=== PATIENT | female | born 1960 | race Caucasian/White ===

== ENCOUNTER 2016-07-06 18:55 | Inpatient (IN) | payer OTHER ==
[~2016-07-06] VITALS: Ht 157.5 cm; Wt 84.9 kg
[2016-07-06 21:00] VITALS: PULSE 83; Ht 157.5 cm; Wt 84.9 kg
[2016-07-06 21:20] VITALS: BP 165/92; RESP 19
[2016-07-06] MEDS ORDERED: LISI20TA11 PO (21:53)
[2016-07-06] MEDS ORDERED: LEVEM SC (21:55)
[2016-07-06] MEDS ORDERED: MTF1000T PO (21:55)
[2016-07-06] MEDS ORDERED: SYNTROID (21:57)
--- NOTE | 2016-07-06 22:05 | HP ---
Date/Time of Note Date/Time of Note DATE: 07/06/16 TIME: 22:04 Assessment/Plan VTE Prophylaxis VTE Prophylaxis Intervention: other (Compression Stockings) Lines/Catheters IV Catheter Type (from Nrsg): Saline Lock Assessment/Plan Assessment/Plan 1) Pneumonia - Continue Rocephin and Azithromycin IV daily - CBC in AM 2) Asthma - Start DuoNebs QID and Albuterol Nebs Q 2 hours prn. 3) Diabetes Type 2 - Carb Counting Diet - FSBS AC and HS - Resume Lisinopril and Metformin. - BMP in AM HPI/ROS Admit Date/Time Admit Date/Time Jul 06, 2016 at 20:28 Hx of Present Illness Direct Admit from [facility] This is a 55 year old female who was transferred from [facility] for insurance reasons. There, she was diagnosed with Pneumonia after having a cough for over 3 weeks, getting worse with increasing SOB over the past week. Prior to this episode, she had the Flu, but did get mostly better from it, except for the cough. No recent fever, but does not feel well. Tires easily. States she got half way across the parking lot and had to stop and catch her breath "I almost passed out". No nausea, vomiting or body aches, but some chest pain, worse with coughing. She has a history of Asthma, but no history of bronchitis pneumonia, seasonal allergies or tobacco use On arrival to the ER, her O2 was 88%. EKG showed poor R-wave progression, isolated 1mm JULES in V2, later T-wave flattening.She was treated with Rocephin and Azithromycin, diuresed and given ASA 325 mg po. prior to discharge from [facility]. ROS Constitutional: fatigue, No nausea Eyes: No pain, No visual change ENT: No discharge, No sore throat Respiratory: pain, shortness of breath, No pleuritic pain, No wheezing (has an inhaler but has not needed it.) Cardiovascular: No chest pain, No palpitations Gastrointestinal: No nausea, No vomiting Genitourinary: No discharge, No dysuria, No hematuria Musculoskeletal: No back pain, No neck pain Skin: no complaints Neurologic: headache (mild. worse with cough) Psychological: no complaints Immunologic: pruritis, rhinitis PMH/Family/Social Past Medical History Medical History: diabetes, high cholesterol, hypertension, hypothyroid, other ( asthma; No bronchitis or Seasonal Allergies.Arthritis. Fibromyalgia) Past Surgical History Hysterectomy and BSO, never put on hormones. Family History Significant Family History: no pertinent family hx Social History Alcohol Use: none Smoking Status: Never smoker Drug Use: none Exam/Review of Systems Vital Signs Vitals Vital Signs Date Time Temp Pulse Resp B/P Pulse Ox O2 Delivery O2 Flow Rate FiO2 07/06/16 21:20 98.9 83 19 165/92 97 Exam Constitutional: alert, oriented, well developed Psych: no complaints Head: atraumatic, normocephalic Eyes: EOMI, nl conjunctiva, nl sclera ENMT: nl lips & teeth, nl nasal mucosa & septum Neck: non-tender, supple Respiratory: normal air movement, other (Coarse Rhonchi, mid and lower lung rendon), wheezing (Scattered, musical wheezes in anterior and lower lung rendon. ) Cardiovascular: nl pulses, regular rate and rhythm Gastrointestinal: nl liver, spleen, non-tender, soft, No rebound or guarding Musculoskeletal: nl extremities to inspection Extremities: normal pulses Neurological: HAND II TUBE BENDER II-XII intact (grossly), nl mental status, nl strength, No focal weakness Skin: nl turgor, No rash or lesions Lymph: nl lymph nodes (cervical) Additional Comments LABS done a [place] [facility]: WBC = 5.6 Hgb = 12.9 Hct = 39.5 PLT = 221 Indices very near normal limits Na = 136 K+ = 3.2 Cl = 96 BUN = 13 Cr = 0.63 Glu = 273 Ca+ = 8.3 Lactate = 1.3 BNP = 168 Trop-I = 0.062 Medications Medications Levothyroxine, daily Lisinopril, Daily Metformin, Daily Prednisone, Daily Procedures Procedures RADIOLOGY: 2VCXR 1) Bilateral perihilar pulmonary consolidations of pneumonia and/or edema, moderated left and large right as compared to 04/06/2012 2) No abnormal calcifications, pleural effusions or cardiomegaly; midline trachea and normal course thoracic aorta. AARON BAUTISTA MD Jul 06, 2016 22:04
[2016-07-06] MEDS ORDERED: NITROGLYCERIN (SL) 0.4 MG TAB SL PRN (22:30)
[2016-07-06] MEDS ORDERED: NACL 0.9% 3 ML SYG IV SCH (22:30)
[2016-07-06] MEDS ORDERED: DEXTROSE 50% 50 ML SYRINGE IV PRN ×2 (23:00)
[2016-07-06] MEDS ORDERED: GLUCOSE GEL 15 GRAM TUBE BUCCAL PRN (23:00)
[2016-07-06] MEDS ORDERED: GLUCOSE GEL 15 GRAM TUBE PO PRN ×2 (23:00)
[2016-07-06] MEDS ORDERED: GLUCAGON 1 MG INJ IM PRN (23:00)
[2016-07-06] MEDS: ALBUTEROL/IPRATROPIUM (NEB) 3 ML AMP HHN PRN (23:08)
[2016-07-06] MEDS ORDERED: hydrALAzine 20 MG INJ IV PRN (23:30)
[2016-07-07] VITALS (12 sets, daily range): BP systolic 135–165; BP diastolic 62–77; PULSE 76–93; RESP 18–20
[2016-07-07] MEDS: PROMETHAZINE/CODEINE 5ML CUP PO PRN ×3 (00:03→20:22)
[2016-07-07] MEDS ORDERED: ALBUTEROL 0.083% (NEB) 2.5 MG/3 ML AMP HHN PRN (01:30)
[2016-07-07] MEDS: ACCUCHECK XX SCH (02:00)
[2016-07-07] MEDS: ACETAMINOPHEN 325 MG TAB PO PRN (05:38)
[2016-07-07] MEDS: ALBUTEROL/IPRATROPIUM (NEB) 3 ML AMP HHN PRN ×2 (05:47→08:19)
[2016-07-07 07:09] LABS: ADD SCAN DIFF NO
[2016-07-07 07:14] LABS: BASOPHILS % 0.3 % (0.0-2.0); HEMATOCRIT 34.9 % (37.0-47.0); HEMOGLOBIN 11.5 g/dl (12.0-16.0); LYMPHOCYTES # 2.9 10^3/ul (0.8-2.9); LYMPHOCYTES % 49.7 % (15.0-51.0); MEAN CORPUSCULAR HEMOGLOBIN 28.1 pg (29.0-33.0); MEAN CORPUSCULAR VOLUME 85.3 fl (82.0-101.0); MEAN PLATELET VOLUME 10.2 fl (7.4-10.4); MONOCYTE # 0.4 10^3/ul (0.3-0.9); MONOCYTES % 6.5 % (0.0-11.0); NEUTROPHIL # 2.6 10^3/ul (1.6-7.5); NEUTROPHILS % 43.3 % (39.0-77.0); PLATELET COUNT 223 10^3/UL (140-415); RED BLOOD COUNT 4.09 10^6/ul (4.20-5.40); RED CELL DISTRIBUTION WIDTH 14.1 % (11.5-14.5); WHITE BLOOD COUNT 5.9 10^3/ul (4.8-10.8)
[2016-07-07 07:32] LABS: ALBUMIN 2.3 g/dl (3.3-4.9)
[2016-07-07 07:35] LABS: ALBUMIN/GLOBULIN RATIO 0.71; BILIRUBIN,INDIRECT 0.5 mg/dl (0-1.1); BILIRUBIN,TOTAL 0.5 mg/dl (0.2-1.3); CREATININE 0.6 mg/dl (0.44-1.00); TOTAL PROTEIN 5.5 g/dl (6.1-8.1)
[2016-07-07 07:36] LABS: CALCIUM 7.8 mg/dl (8.4-10.2)
[2016-07-07] MEDS: FAMOTIDINE 20 MG TAB PO SCH ×2 (08:12→20:22)
[2016-07-07] MEDS: LISINOPRIL 20 MG TAB PO SCH (08:13)
[2016-07-07] MEDS: INSULIN ASPART [NOVOLOG] 3 ML PEN SC SCH ×4 (08:16→20:26)
[2016-07-07] MEDS ORDERED: POTASSIUM CHLORIDE 20 MEQ in SOD CHLORIDE 0.9% 100 ML IVPB ONE (13:00)
[2016-07-07] MEDS: CEFTRIAXONE 1 GM/50 ML (PMX) 50 ML IVPB SCH (13:00)
[2016-07-07] MEDS: AZITHROMYCIN 500MG/NS (PMX) 250 ML IVPB SCH (15:06)
--- NOTE | 2016-07-07 16:24 | PN ---
Date/Time of Note Date/Time of Note DATE: 07/07/16 TIME: 16:21 Assessment/Plan VTE Prophylaxis VTE Prophylaxis Intervention: SCD's Lines/Catheters IV [facility]from [facility] Saline Lock Urinary Cath still in place: No Assessment/Plan Chief Complaint/Hosp Course Assessment/Plan 1) Pneumonia - Continue Rocephin and Azithromycin IV daily - CBC in AM 2) Asthma - Start DuoNebs QID and Albuterol Nebs Q 2 hours prn. 3) Diabetes Type 2 - Carb Counting Diet - FSBS AC and HS - Resume metformin and insulin/Lantus - BMP in AM 4. Hypothyroidism, follow-up thyroid panel in a.m. continue Synthroid 5. NST IN, troponin leak, is likely secondary to frequent cough, cardiology has been consulted, continue aspirin, obtain a 2D echocardiogram and follow cardiology recommendations We will continue monitor patient closely for recommendation management treatment as clinical course Problems: Subjective 24 Hr Interval Summary Free Text/Dictation Patient continues to complain of having cough and congestion Denies of any chest pain Tolerating oral intake Exam/Review of Systems Vital Signs Vitals Vital Signs Date Time Temp Pulse Resp B/P Pulse Ox O2 Delivery O2 Flow Rate FiO2 07/07/16 16:05 78 07/07/16 16:01 98.8 20 161/73 98 07/07/16 08:19 21 07/07/16 08:15 Nasal Cannula 2.0 Intake and Output 07/06/16 07/06/16 07/07/16 15:00 23:00 07:00 Intake Total 550 ml Balance 550 ml Exam General: The patient is well-developed, Not in acute distress. HEENT: Atraumatic, normocephalic. The pupils are equal and round . Neck: Supple with full range of motion. Chest: Normal expansion of the thorax during inspiration Lungs: Clear to auscultation bilaterally Heart: Normal S1-S2, Regular rhythm and rate. Abdomen: Soft , nontender, nondistended , bowel sounds are present. Extremities: Normal to inspection, no edema no cyanosis Neurologic: Normal mental status,The patient is awake, alert and oriented . Results Result Diagram: 07/07/16 0640 07/07/16 0644 Results 24 hrs Laboratory Tests Test 07/07/16 06:40 07/07/16 06:44 07/07/16 07:49 07/07/16 12:23 Basophils # 0.0 Basophils % 0.3 Eosinophils # 0.0 Eosinophils % 0.0 Hematocrit 34.9 L Hemoglobin 11.5 L Hemoglobin A1c 9.3 H Lymphocytes # 2.9 Lymphocytes % 49.7 Magnesium Level 1.6 L Mean Corpuscular Hemoglobin 28.1 L Mean Corpuscular Hemoglobin Concent 33.0 Mean Corpuscular Volume 85.3 Mean Platelet Volume 10.2 Monocytes # 0.4 Monocytes % 6.5 Neutrophils # 2.6 Neutrophils % 43.3 Nucleated Red Blood Cells # 0.0 Nucleated Red Blood Cells % 0.0 Platelet Count 223 Red Blood Count 4.09 L Red Cell Distribution Width 14.1 White Blood Count 5.9 Alanine Aminotransferase (ALT/SGPT) 44 Albumin 2.3 L Albumin/Globulin Ratio 0.71 Alkaline Phosphatase 215 H Anion Gap 11 Aspartate Amino Transf (AST/SGOT) 42 Blood Urea Nitrogen 12 Calcium Level 7.8 L Carbon Dioxide Level 31 Chloride Level 99 Creatinine 0.60 Direct Bilirubin 0.00 Globulin 3.20 Glucose Level 218 Indirect Bilirubin 0.5 Potassium Level 3.0 L Sodium Level 138 Total Bilirubin 0.5 Total Protein 5.5 L Bedside Glucose 198 235 H Medications Medications Current Medications Nitroglycerin (Nitroglycerin (Sl Tab) 0.4 Mg) 1 tab Q5M PRN SL CHEST PAIN; Start 07/06/16 at 22:30 Acetaminophen (Tylenol Tab) 650 mg Q6H PRN PO PAIN LEVEL 1-3 OR FEVER Last administered on 07/07/16 05:38; Admin Dose 650 MG; Start 07/06/16 at 22:30 Famotidine (Pepcid) 20 mg Q12 PO Last administered on 07/07/16 08:12; Admin Dose 20 MG; Start 07/07/16 at 09:00 Diagnostic Test (Pha) (Accucheck) 1 ea 02 XX ; Start 07/07/16 at 02:00 Miscellaneous Information 1 ea NOTE XX ; Start 07/06/16 at 23:00 Glucose (Glutose) 15 gm Q15M PRN PO DECREASED GLUCOSE; Start 07/06/16 at 23:00 Glucose (Glutose) 22.5 gm Q15M PRN PO DECREASED GLUCOSE; Start 07/06/16 at 23:00 Dextrose (D50w Syringe) 25 ml Q15M PRN IV DECREASED GLUCOSE; Start 07/06/16 at 23:00 Dextrose (D50w Syringe) 50 ml Q15M PRN IV DECREASED GLUCOSE; Start 07/06/16 at 23:00 Glucagon (Glucagen) 1 mg Q15M PRN IM DECREASED GLUCOSE; Start 07/06/16 at 23:00 Glucose (Glutose) 15 gm Q15M PRN BUCCAL DECREASED GLUCOSE; Start 07/06/16 at 23: 00 Promethazine HCl/ Codeine (Phenergan/ Codeine) 10 ml Q4H PRN PO COUGH Last administered on 07/07/16 06:26; Admin Dose 10 ML; Start 07/06/16 at 23:30 Lisinopril (Zestril) 20 mg DAILY PO Last administered on 07/07/16 08:13; Admin Dose 20 MG; Start 07/07/16 at 09:00 Hydralazine HCl 10 mg 10 mg Q4H PRN IV ELEVATED BLOOD PRESSURE; Start 07/06/16 at 23:30 Azithromycin 250 ml @ 250 mls/hr Q24H IVPB Last administered on 07/07/16 15:06 ; Admin Dose 250 MLS/HR; Start 07/07/16 at 13:30 Ceftriaxone Sodium (Rocephin) 50 ml @ 100 mls/hr Q24H IVPB ; Start 07/07/16 at 13:00 KEILA DORSEY MD Jul 07, 2016 16:24
[2016-07-07 16:51] LABS: CK-MB 0.93 ng/ml (0.0-2.4)
[2016-07-07 16:54] LABS: TROPONIN-I 0.063 ng/ml (0.00-0.12)
[2016-07-07] MEDS: ASPIRIN (EC) 81 MG TAB PO SCH (17:38)
[2016-07-07] MEDS ORDERED: MAGNESIUM SULFATE 3 GM in SOD CHLORIDE 0.9% 100 ML IVPB ONE (18:00)
--- NOTE | 2016-07-07 18:19 | CONS ---
Date/Time of Note Date/Time of Note DATE: 07/07/16 TIME: 18:12 Assessment/Plan Assessment/Plan Chief Complaint/Hosp Course SOB: ?multifactorial but CHF seems to be the main component based on my exam Acute ?diastolic heart failure: EF unknown. By exam she is decompensated. Mild troponin elevation: Very trivial at 0.06 x 2. ?PNA DM HTN -lasix 20mg IV x1 and reassess -echo -CXR -ASA, statin -lisinopril -antibiotics per primary team Problems: Consultation Date/Type/Reason Admit Date/Time Jul 06, 2016 at 20:28 Date of Consultation: Jul 07, 2016 Type of Consultation: Cardiology Reason for Consultation elevated troponin Referring Provider: KEILA DORSEY MD Hx of Present Illness 55 yo F with a h/o DM, HTN, who presented to [facility] with SOB and was found to have hypoxia (88% on RA). She was treated for PNA and CHF and transferred to [facility] for further care. She notes that over the past 1-2 weeks she has been having worsening SOB and PRASAD as well as orthopnea, edema. She also thinks she had a fever at home and a cough. She denies CP. Currently feels better but still SOB when ambulating around room. per HPI Eyes: No pain, No visual change ENT: No discharge, No sore throat Respiratory: pain, shortness of breath, No pleuritic pain, No wheezing (has an inhaler but has not needed it.) Cardiovascular: No chest pain, No palpitations Gastrointestinal: No nausea, No vomiting Genitourinary: No discharge, No dysuria, No hematuria Musculoskeletal: No back pain, No neck pain Skin: no complaints Neurologic: headache (mild. worse with cough) Psychological: no complaints Immunologic: pruritis, rhinitis Past Medical History Medical History: diabetes, high cholesterol, hypertension, hypothyroid, other ( asthma; No bronchitis or Seasonal Allergies.Arthritis. Fibromyalgia) Social History Alcohol Use: none Smoking Status: Never smoker Drug Use: none Exam/Review of Systems Vital Signs Vitals Vital Signs Date Time Temp Pulse Resp B/P Pulse Ox O2 Delivery O2 Flow Rate FiO2 07/07/16 16:05 78 07/07/16 16:01 98.8 20 161/73 98 07/07/16 08:19 21 07/07/16 08:15 Nasal Cannula 2.0 Intake and Output 3/6/17 3/6/17 3/7/17 15:00 23:00 07:00 Intake Total 550 ml Balance 550 ml Exam Constitutional: alert, oriented Head: atraumatic, normocephalic Neck: jvd (8cm) Respiratory: crackles/rales, diminished breath sounds, No clear to auscultation Cardiovascular: edema (1+), regular rate and rhythm, No systolic murmur Gastrointestinal: non-tender, soft Extremities: normal pulses Neurological: nl mental status, nl speech Results Result Diagram: 07/07/16 0640 07/07/16 0644 Results 24 hrs Laboratory Tests Test 07/07/16 06:40 07/07/16 06:44 07/07/16 07:49 07/07/16 12:23 Basophils # 0.0 Basophils % 0.3 Eosinophils # 0.0 Eosinophils % 0.0 Hematocrit 34.9 L Hemoglobin 11.5 L Hemoglobin A1c 9.3 H Lymphocytes # 2.9 Lymphocytes % 49.7 Magnesium Level 1.6 L Mean Corpuscular Hemoglobin 28.1 L Mean Corpuscular Hemoglobin Concent 33.0 Mean Corpuscular Volume 85.3 Mean Platelet Volume 10.2 Monocytes # 0.4 Monocytes % 6.5 Neutrophils # 2.6 Neutrophils % 43.3 Nucleated Red Blood Cells # 0.0 Nucleated Red Blood Cells % 0.0 Platelet Count 223 Red Blood Count 4.09 L Red Cell Distribution Width 14.1 White Blood Count 5.9 Alanine Aminotransferase (ALT/SGPT) 44 Albumin 2.3 L Albumin/Globulin Ratio 0.71 Alkaline Phosphatase 215 H Anion Gap 11 Aspartate Amino Transf (AST/SGOT) 42 Blood Urea Nitrogen 12 Calcium Level 7.8 L Carbon Dioxide Level 31 Chloride Level 99 Creatinine 0.60 Direct Bilirubin 0.00 Globulin 3.20 Glucose Level 218 Indirect Bilirubin 0.5 Potassium Level 3.0 L Sodium Level 138 Total Bilirubin 0.5 Total Protein 5.5 L Bedside Glucose 198 235 H Test 07/07/16 16:00 07/07/16 17:37 Creatine Kinase 56 Creatine Kinase Index 1.7 Creatinine Kinase MB (Mass) 0.93 Troponin I 0.063 Bedside Glucose 214 Medications Medications Current Medications Nitroglycerin (Nitroglycerin (Sl Tab) 0.4 Mg) 1 tab Q5M PRN SL CHEST PAIN; Start 07/06/16 at 22:30 Acetaminophen (Tylenol Tab) 650 mg Q6H PRN PO PAIN LEVEL 1-3 OR FEVER Last administered on 07/07/16 05:38; Admin Dose 650 MG; Start 07/06/16 at 22:30 Famotidine (Pepcid) 20 mg Q12 PO Last administered on 07/07/16 08:12; Admin Dose 20 MG; Start 07/07/16 at 09:00 Diagnostic Test (Pha) (Accucheck) 1 ea 02 XX ; Start 07/07/16 at 02:00 Miscellaneous Information 1 ea NOTE XX ; Start 07/06/16 at 23:00 Glucose (Glutose) 15 gm Q15M PRN PO DECREASED GLUCOSE; Start 07/06/16 at 23:00 Glucose (Glutose) 22.5 gm Q15M PRN PO DECREASED GLUCOSE; Start 07/06/16 at 23:00 Dextrose (D50w Syringe) 25 ml Q15M PRN IV DECREASED GLUCOSE; Start 07/06/16 at 23:00 Dextrose (D50w Syringe) 50 ml Q15M PRN IV DECREASED GLUCOSE; Start 07/06/16 at 23:00 Glucagon (Glucagen) 1 mg Q15M PRN IM DECREASED GLUCOSE; Start 07/06/16 at 23:00 Glucose (Glutose) 15 gm Q15M PRN BUCCAL DECREASED GLUCOSE; Start 07/06/16 at 23: 00 Promethazine HCl/ Codeine (Phenergan/ Codeine) 10 ml Q4H PRN PO COUGH Last administered on 07/07/16 06:26; Admin Dose 10 ML; Start 07/06/16 at 23:30 Lisinopril (Zestril) 20 mg DAILY PO Last administered on 07/07/16 08:13; Admin Dose 20 MG; Start 07/07/16 at 09:00 Hydralazine HCl 10 mg 10 mg Q4H PRN IV ELEVATED BLOOD PRESSURE; Start 07/06/16 at 23:30 Azithromycin 250 ml @ 250 mls/hr Q24H IVPB Last administered on 07/07/16 15:06 ; Admin Dose 250 MLS/HR; Start 07/07/16 at 13:30 Ceftriaxone Sodium 50 ml @ 100 mls/hr Q24H IVPB ; Start 07/07/16 at 13:00 Magnesium Sulfate/ Sodium Chloride (Magnesium Sulfate/NS) 106 ml @ 35.333 mls/ hr ONCE ONCE IVPB ; Start 07/07/16 at 18:00; Stop 07/07/16 at 20:59 Insulin Glargine (Lantus) 10 unit DAILY@20 SC ; Start 07/07/16 at 20:00 Levothyroxine Sodium (Synthroid) 50 mcg DAILY@06 PO ; Start 07/08/16 at 06:00 Aspirin (Halfprin) 81 mg DAILY PO Last administered on 07/07/16t 17:38; Admin Dose 81 MG; Start 07/07/16 at 16:30 Metoprolol Tartrate (Lopressor) 12.5 mg BID PO ; Start 07/07/16 at 21:00 SEUN JONES Jul 07, 2016 18:19
[2016-07-07] MEDS ORDERED: GUAIFENESIN/DM 5ML CUP PO PRN (18:30)
[2016-07-07] MEDS ORDERED: FUROSEMIDE 20 MG INJ IV ONE (18:30)
[2016-07-07] MEDS ORDERED: INSULIN GLARGINE [LANtus] 3 ML PEN SC SCH (20:00)
[2016-07-07] MEDS: ALBUTEROL/IPRATROPIUM (NEB) 3 ML AMP HHN SCH (20:41)
[2016-07-07] MEDS ORDERED: METOPROLOL 25 MG TAB PO SCH (21:00)
[2016-07-07 22:18] LABS: CK-MB 0.84 ng/ml (0.0-2.4)
[2016-07-07 22:21] LABS: TROPONIN-I 0.056 ng/ml (0.00-0.12)
[2016-07-08] VITALS (13 sets, daily range): BP systolic 128–160; BP diastolic 62–94; PULSE 68–80; RESP 17–20
[2016-07-08] MEDS: ALBUTEROL/IPRATROPIUM (NEB) 3 ML AMP HHN SCH ×4 (01:41→21:02)
[2016-07-08] MEDS: ACCUCHECK XX SCH (02:23)
[2016-07-08 03:44] LABS: ADD SCAN DIFF NO
[2016-07-08 03:59] LABS: BASOPHILS % 0.2 % (0.0-2.0); EOSINOPHILS % 0.8 % (0.0-7.0); HEMOGLOBIN 11.2 g/dl (12.0-16.0); LYMPHOCYTES # 3.4 10^3/ul (0.8-2.9); MEAN CORPUSCULAR HGB CONC 31.1 g/dl (32.0-37.0); MEAN CORPUSCULAR VOLUME 86.7 fl (82.0-101.0); MEAN PLATELET VOLUME 10.3 fl (7.4-10.4); MONOCYTE # 0.4 10^3/ul (0.3-0.9); MONOCYTES % 8.1 % (0.0-11.0); NEUTROPHIL # 1.3 10^3/ul (1.6-7.5); NEUTROPHILS % 25.1 % (39.0-77.0); PLATELET COUNT 238 10^3/UL (140-415); RED BLOOD COUNT 4.15 10^6/ul (4.20-5.40); RED CELL DISTRIBUTION WIDTH 14.4 % (11.5-14.5); WHITE BLOOD COUNT 5.2 10^3/ul (4.8-10.8)
[2016-07-08 04:02] LABS: POTASSIUM 3.2 mmol/L (3.5-5.1)
[2016-07-08 04:04] LABS: CREATININE 0.61 mg/dl (0.44-1.00)
[2016-07-08 04:05] LABS: CALCIUM 7.9 mg/dl (8.4-10.2); CHOL/HDL RATIO 7.1 RATIO; MAGNESIUM 2.5 mg/dl (1.7-2.5)
[2016-07-08 04:09] LABS: LYMPHOCYTES % 65.6 % (15.0-51.0)
[2016-07-08 04:13] LABS: CK-MB 0.94 ng/ml (0.0-2.4)
[2016-07-08 04:16] LABS: TROPONIN-I 0.072 ng/ml (0.00-0.12)
[2016-07-08 04:46] LABS: PLATELET ESTIMATE PLT APPEAR ADEQUATE
[2016-07-08 04:47] LABS: ANISOCYTOSIS 1+; OVALOCYTES FEW
[2016-07-08] MEDS ORDERED: LEVOTHYROXINE 50 MCG TAB PO SCH (06:00)
[2016-07-08] MEDS ORDERED: POTASSIUM CHLORIDE (SR) 20 MEQ TAB PO ONE (06:30)
[2016-07-08] MEDS: PROMETHAZINE/CODEINE 5ML CUP PO PRN (06:41)
--- NOTE | 2016-07-08 08:43 | RADRPT ---
PROCEDURE: XR Chest. CLINICAL INDICATION: Pneumonia. TECHNIQUE: Chest x-ray, single view. COMPARISON: None. FINDINGS: The heart is enlarged. Mild aortic arch atherosclerotic calcification is present. Mild pulmonary v ascular congestion is observed. There is also patchy perihilar opacification. Skeletal structures and upper abdomen are unremarkable. IMPRESSION: Cardiomegaly and atherosclerosis with mild pulmonary vascular congestion and patchy perihilar opacif ication which may reflect mild edema. RPTAT: EE .Louisa Mehta MD, Date Time Electronically viewed and signed by .Louisa Mehta MD, on 07/08/2016 08:43 .T/
--- NOTE | 2016-07-08 10:24 | RADRPT ---
Echocardiogram Report Patient Name: DAMIAN CORONADO Gender: Female Date: 1960 Study Date: 08-Jul-2016 [facility]: [facility] Location: [id number] Ref. Physician: KEILA DORSEY Quality: Technically Difficult Study Procedures: Transthoracic echocardiogram with complete 2D, M-Mode, and doppler examination. Indications: NSTEMI. 2D/M Mode Doppler Measurement Value Normal Ranges Measurement Value Normal Ranges LVIDd 2D 4.8 3.5 - 5.6 cm AV Peak Kevin 1.5 m/sec LVIDs 2D 3.0 2.1 - 4.1 cm AV Peak PG 9.0 mmHg FS 2D 38.6 % LVOT Peak Kevin 1.2 m/sec LVPWd 2D 1.4 0.6 - 1.1 cm LVOT Peak PG 6.0 mmHg IVSd 2D 1.4 0.6 - 1.1 cm MV E Peak Kevin 1.1 m/sec IVS/LVPW 2D 1.0 MV A Peak Kevin 0.9 m/sec AoR Diam 2D 2.6 2.0 - 3.7 cm MV E/A 1.2 LA/Ao 2D 2 0 - 1 MV Decel Time 261 msec EDV 2D 112.0 cm3 MV E/A 1.2 ESV 2D 25.9 cm3 LA Dimen 2D 3.9 2.3 - 4.0 cm Findings Left Ventricle: Normal left ventricular systolic function. Normal left ventricular cavity size. Left ventricular wall thickness upper limits of normal. Moderate concentric left ventricular hypertrophy. Ejection fraction is visually estimated at 55 %. Tissue Doppler/Mitral Doppler indices are consistent with pseudonormalization with mildly elevated left atrial pressure (Stage II diastolic dysfunction). Right Ventricle: Normal right ventricular size. Left Atrium: There is mild enlargement of left atrium. Right Atrium: The right atrium is normal in size. Mitral Valve: Mild mitral leaflet calcification. Mild mitral annular calcification. Trace mitral regurgitation. Aortic Valve: Trileaflet aortic valve. Trace aortic valve regurgitation. Tricuspid Valve: Tricuspid valve not well visualized. Unable to obtain RVSP due to minimal presence of tricuspid regurgitation. There is trace tricuspid regurgitation. Pericardium: Small pericardial effusion. Aorta: Normal aortic root. IVC: Dilated inferior vena cava with poor inspiratory collapse consistent with elevated right atrial pressures. Conclusions 1.Normal left ventricular systolic function. Normal left ventricular cavity size. Left ventricular wall thickness upper limits of normal. Moderate concentric left ventricular hypertrophy. Ejection fraction is visually estimated at 55 %. Tissue Doppler/Mitral Doppler indices are consistent with pseudonormalization with mildly elevated left atrial pressure (Stage II diastolic dysfunction). 2.No significant valvular stenosis or regurgitation seen. 3.Unable to obtain RVSP due to minimal presence of tricuspid regurgitation. RA pressure is 8-15 mmHg (unclear respiratory effort). Electronically Signed By: Glenroy Holland 08-Jul-2016 10:23:45 -0800 Patient Name: DAMIAN CORONADO Study Date: 08-Jul-2016 [id number]
[2016-07-08] MEDS ORDERED: POTASSIUM CHLORIDE 20 MEQ POWDER FOR ORAL SOLN PO ONE (10:30)
--- NOTE | 2016-07-08 10:34 | CONS ---
Date/Time of Note Date/Time of Note DATE: 07/08/16 TIME: 10:31 Assessment/Plan Assessment/Plan Chief Complaint/Hosp Course SOB: ?multifactorial but CHF seems to be the main component based on my exam Acute ?diastolic heart failure: EF preserved, mod LVH, grade 2 diastolic dysfunction. By exam she is still decompensated. Mild troponin elevation: Very trivial at 0.06 x 2. ?PNA DM HTN -increase to lasix 40mg IV BID today, reassess tomorrow -will give another potassium 60mEq (already received 40 this am) as will be diuresed further -ASA, statin -lisinopril -antibiotics per primary team Problems: Consultation Date/Type/Reason Admit Date/Time Jul 06, 2016 at 20:28 Initial Consult Date 07/07/16 Type of Consultation: Cardiology Referring Provider: KEILA DORSEY MD 24 HR Interval Summary Free Text/Dictation No o/n events. Still SOB. CXR shows significant congestion. Echo with preserved EF but e/o diastolic dysfunction and heart failure. Exam/Review of Systems Vital Signs Vitals Vital Signs Date Time Temp Pulse Resp B/P Pulse Ox O2 Delivery O2 Flow Rate FiO2 07/08/16 08:19 71 07/08/16 08:03 98.1 17 139/71 96 07/08/16 08:00 21 07/07/16 19:00 Nasal Cannula 2.0 Intake and Output 07/07/16 07/07/16 07/08/16 15:00 23:00 07:00 Intake Total 960 ml 600 ml Balance 960 ml 600 ml Exam Constitutional: alert, oriented Psych: no complaints Head: normocephalic Neck: jvd Respiratory: crackles/rales, No clear to auscultation Cardiovascular: edema (1+), regular rate and rhythm, No systolic murmur Gastrointestinal: non-tender, soft Neurological: nl mental status, nl speech Results Result Diagram: 07/08/16 0335 07/08/16 0335 Results 24 hrs Laboratory Tests Test 07/07/16 12:23 07/07/16 16:00 07/07/16 17:37 07/07/16 20:17 Bedside Glucose 235 H 214 343 H Creatine Kinase 56 Creatine Kinase Index 1.7 Creatinine Kinase MB (Mass) 0.93 Troponin I 0.063 Test 07/07/16 21:47 07/08/16 02:22 07/08/16 03:35 07/08/16 08:22 Creatine Kinase 53 54 Creatine Kinase Index 1.6 1.7 Creatinine Kinase MB (Mass) 0.84 0.94 Troponin I 0.056 0.072 Bedside Glucose 179 178 Anion Gap 11 Anisocytosis 1+ Basophils # 0.0 Basophils % 0.2 Blood Urea Nitrogen 13 Calcium Level 7.9 L Carbon Dioxide Level 31 Chloride Level 100 Cholesterol Level 187 Cholesterol/HDL Ratio 7.1 Creatinine 0.61 Eosinophils # 0.0 Eosinophils % 0.8 Glucose Level 179 HDL Cholesterol 26 L Hematocrit 36.0 L Hemoglobin 11.2 L LDL Cholesterol, Calculated 125 Lymphocytes # 3.4 H Lymphocytes % 65.6 H Magnesium Level 2.5 Mean Corpuscular Hemoglobin 27.0 L Mean Corpuscular Hemoglobin Concent 31.1 L Mean Corpuscular Volume 86.7 Mean Platelet Volume 10.3 Monocytes # 0.4 Monocytes % 8.1 Neutrophils # 1.3 L Neutrophils % 25.1 L Nucleated Red Blood Cells # 0.0 Nucleated Red Blood Cells % 0.0 Ovalocytes FEW Platelet Count 238 Platelet Estimate PLT APPEAR ADEQUATE Potassium Level 3.2 L Red Blood Count 4.15 L Red Cell Distribution Width 14.4 Sodium Level 139 Thyroid Stimulating Hormone (TSH) 70.000 H Triglycerides Level 180 H White Blood Count 5.2 Medications Medications Current Medications Nitroglycerin (Nitroglycerin (Sl Tab) 0.4 Mg) 1 tab Q5M PRN SL CHEST PAIN; Start 07/06/16 at 22:30 Acetaminophen (Tylenol Tab) 650 mg Q6H PRN PO PAIN LEVEL 1-3 OR FEVER Last administered on 07/07/16 05:38; Admin Dose 650 MG; Start 07/06/16 at 22:30 Famotidine (Pepcid) 20 mg Q12 PO Last administered on 07/07/16 20:22; Admin Dose 20 MG; Start 07/07/16 at 09:00 Diagnostic Test (Pha) (Accucheck) 1 ea 02 XX Last administered on 07/08/16 02: 23; Admin Dose 1 EA; Start 07/07/16 at 02:00 Miscellaneous Information 1 ea NOTE XX ; Start 07/06/16 at 23:00 Glucose (Glutose) 15 gm Q15M PRN PO DECREASED GLUCOSE; Start 07/06/16 at 23:00 Glucose (Glutose) 22.5 gm Q15M PRN PO DECREASED GLUCOSE; Start 07/06/16 at 23:00 Dextrose (D50w Syringe) 25 ml Q15M PRN IV DECREASED GLUCOSE; Start 07/06/16 at 23:00 Dextrose (D50w Syringe) 50 ml Q15M PRN IV DECREASED GLUCOSE; Start 07/06/16 at 23:00 Glucagon (Glucagen) 1 mg Q15M PRN IM DECREASED GLUCOSE; Start 07/06/16 at 23:00 Glucose (Glutose) 15 gm Q15M PRN BUCCAL DECREASED GLUCOSE; Start 07/06/16 at 23: 00 Promethazine HCl/ Codeine (Phenergan/ Codeine) 10 ml Q4H PRN PO COUGH Last administered on 07/08/16 06:41; Admin Dose 10 ML; Start 07/06/16 at 23:30 Lisinopril (Zestril) 20 mg DAILY PO Last administered on 07/07/16 08:13; Admin Dose 20 MG; Start 07/07/16 at 09:00 Hydralazine HCl 10 mg 10 mg Q4H PRN IV ELEVATED BLOOD PRESSURE; Start 07/06/16 at 23:30 Azithromycin 250 ml @ 250 mls/hr Q24H IVPB Last administered on 07/07/16 15:06 ; Admin Dose 250 MLS/HR; Start 07/07/16 at 13:30 Ceftriaxone Sodium (Rocephin) 50 ml @ 100 mls/hr Q24H IVPB ; Start 07/07/16 at 13:00 Levothyroxine Sodium (Synthroid) 50 mcg DAILY@06 PO Last administered on 05:21; Admin Dose 50 MCG; Start 07/08/16 at 06:00 Aspirin (Halfprin) 81 mg DAILY PO Last administered on 07/07/16 17:38; Admin Dose 81 MG; Start 07/07/16 at 16:30 Insulin Glargine (Lantus) 10 unit BID SC ; Start 07/08/16 at 09:00 Metoprolol Tartrate (Lopressor) 25 mg BID PO ; Start 07/08/16 at 09:00 SEUN JONES Jul 08, 2016 10:33
[2016-07-08] MEDS: metFORMIN 500 MG TAB PO SCH (10:56)
[2016-07-08] MEDS: LISINOPRIL 20 MG TAB PO SCH (10:57)
[2016-07-08] MEDS: METOPROLOL 25 MG TAB PO SCH ×2 (10:57→20:40)
[2016-07-08] MEDS: FAMOTIDINE 20 MG TAB PO SCH ×2 (10:57→20:39)
[2016-07-08] MEDS: ASPIRIN (EC) 81 MG TAB PO SCH (10:57)
[2016-07-08] MEDS: INSULIN GLARGINE [LANtus] 3 ML PEN SC SCH ×2 (10:59→20:42)
[2016-07-08] MEDS: INSULIN ASPART [NOVOLOG] 3 ML PEN SC SCH ×4 (11:02→20:41)
[2016-07-08] MEDS: FUROSEMIDE 40 MG INJ IV SCH ×2 (11:08→18:47)
[2016-07-08] MEDS: CEFTRIAXONE 1 GM/50 ML (PMX) 50 ML IVPB SCH (12:43)
--- NOTE | 2016-07-08 12:59 | PN ---
Date/Time of Note Date/Time of Note DATE: 07/08/16 TIME: 12:57 Assessment/Plan VTE Prophylaxis VTE Prophylaxis Intervention: LMWH Lines/Catheters IV [facility]ter [facility]from [facility] Urinary Cath still in place: No Assessment/Plan Chief Complaint/Hosp Course Assessment/Plan 1) Pneumonia - Continue Rocephin and Azithromycin IV daily - CBC in AM 2) Asthma - Start DuoNebs QID and Albuterol Nebs Q 2 hours prn. 3) Diabetes Type 2 - Carb Counting Diet - FSBS AC and HS - Resume metformin and insulin/Lantus - BMP in AM 4. Hypothyroidism, TSH of 70, follow-up free T3 and free T4 continue Synthroid , precision lens centerer and edger has been consulted 5. NST LA, troponin leak, is likely secondary to frequent cough, cardiology has been consulted, continue aspirin, 2D echocardiogram demonstrated ejection fraction of 55% and follow cardiology recommendations 6. Hypokalemia, repleted 7. Dyslipidemia, start Lipitor We will continue monitor patient closely for recommendation management treatment as clinical course Plan to discharge home tomorrow Problems: Subjective 24 Hr Interval Summary Free Text/Dictation Patient denies any chest pain or shortness of breath Tolerating oral intake Exam/Review of Systems Vital Signs Vitals Vital Signs Date Time Temp Pulse Resp B/P Pulse Ox O2 Delivery O2 Flow Rate FiO2 07/08/16 12:41 73 07/08/16 11:28 97.4 18 160/94 91 07/08/16 08:00 Nasal Cannula 2.0 07/08/16 08:00 21 Intake and Output 07/07/16 07/07/16 07/08/16 15:00 23:00 07:00 Intake Total 960 ml 600 ml Balance 960 ml 600 ml Exam General: The patient is well-developed, Not in acute distress. HEENT: Atraumatic, normocephalic. The pupils are equal and round . Neck: Supple with full range of motion. Chest: Normal expansion of the thorax during inspiration Lungs: Positive crackles bilateral lower lung field Heart: Normal S1-S2, Regular rhythm and rate. Abdomen: Soft , nontender, nondistended , bowel sounds are present. Extremities: Normal to inspection, no edema no cyanosis Neurologic: Normal mental status,The patient is awake, alert and oriented . Results Result Diagram: 07/08/16 0335 07/08/16 0335 Results 24 hrs Laboratory Tests Test 07/07/16 16:00 07/07/16 17:37 07/07/16 20:17 07/07/16 21:47 Creatine Kinase 56 53 Creatine Kinase Index 1.7 1.6 Creatinine Kinase MB (Mass) 0.93 0.84 Troponin I 0.063 0.056 Bedside Glucose 214 343 H Test 07/08/16 02:22 07/08/16 03:35 07/08/16 08:22 07/08/16 12:43 Bedside Glucose 179 178 180 Anion Gap 11 Anisocytosis 1+ Basophils # 0.0 Basophils % 0.2 Blood Urea Nitrogen 13 Calcium Level 7.9 L Carbon Dioxide Level 31 Chloride Level 100 Cholesterol Level 187 Cholesterol/HDL Ratio 7.1 Creatine Kinase 54 Creatine Kinase Index 1.7 Creatinine 0.61 Creatinine Kinase MB (Mass) 0.94 Eosinophils # 0.0 Eosinophils % 0.8 Glucose Level 179 HDL Cholesterol 26 L Hematocrit 36.0 L Hemoglobin 11.2 L LDL Cholesterol, Calculated 125 Lymphocytes # 3.4 H Lymphocytes % 65.6 H Magnesium Level 2.5 Mean Corpuscular Hemoglobin 27.0 L Mean Corpuscular Hemoglobin Concent 31.1 L Mean Corpuscular Volume 86.7 Mean Platelet Volume 10.3 Monocytes # 0.4 Monocytes % 8.1 Neutrophils # 1.3 L Neutrophils % 25.1 L Nucleated Red Blood Cells # 0.0 Nucleated Red Blood Cells % 0.0 Ovalocytes FEW Platelet Count 238 Platelet Estimate PLT APPEAR ADEQUATE Potassium Level 3.2 L Red Blood Count 4.15 L Red Cell Distribution Width 14.4 Sodium Level 139 Thyroid Stimulating Hormone (TSH) 70.000 H Triglycerides Level 180 H Troponin I 0.072 White Blood Count 5.2 Medications Medications Current Medications Nitroglycerin (Nitroglycerin (Sl Tab) 0.4 Mg) 1 tab Q5M PRN SL CHEST PAIN; Start 07/06/16 at 22:30 Acetaminophen (Tylenol Tab) 650 mg Q6H PRN PO PAIN LEVEL 1-3 OR FEVER Last administered on 07/07/16 05:38; Admin Dose 650 MG; Start 07/06/16 at 22:30 Famotidine (Pepcid) 20 mg Q12 PO Last administered on 07/08/16 10:57; Admin Dose 20 MG; Start 07/07/16 at 09:00 Diagnostic Test (Pha) (Accucheck) 1 ea 02 XX Last administered on 07/08/16 02: 23; Admin Dose 1 EA; Start 07/07/16 at 02:00 Miscellaneous Information 1 ea NOTE XX ; Start 07/06/16 at 23:00 Glucose (Glutose) 15 gm Q15M PRN PO DECREASED GLUCOSE; Start 07/06/16 at 23:00 Glucose (Glutose) 22.5 gm Q15M PRN PO DECREASED GLUCOSE; Start 07/06/16 at 23:00 Dextrose (D50w Syringe) 25 ml Q15M PRN IV DECREASED GLUCOSE; Start 07/06/16 at 23:00 Dextrose (D50w Syringe) 50 ml Q15M PRN IV DECREASED GLUCOSE; Start 07/06/16 at 23:00 Glucagon (Glucagen) 1 mg Q15M PRN IM DECREASED GLUCOSE; Start 07/06/16 at 23:00 Glucose (Glutose) 15 gm Q15M PRN BUCCAL DECREASED GLUCOSE; Start 07/06/16 at 23: 00 Promethazine HCl/ Codeine (Phenergan/ Codeine) 10 ml Q4H PRN PO COUGH Last administered on 07/08/16 06:41; Admin Dose 10 ML; Start 07/06/16 at 23:30 Lisinopril (Zestril) 20 mg DAILY PO Last administered on 07/08/16 10:57; Admin Dose 20 MG; Start 07/07/16 at 09:00 Hydralazine HCl 10 mg 10 mg Q4H PRN IV ELEVATED BLOOD PRESSURE; Start 07/06/16 at 23:30 Azithromycin 250 ml @ 250 mls/hr Q24H IVPB Last administered on 07/07/16 15:06 ; Admin Dose 250 MLS/HR; Start 07/07/16 at 13:30 Ceftriaxone Sodium (Rocephin) 50 ml @ 100 mls/hr Q24H IVPB Last administered on 07/08/16 12:43; Admin Dose 100 MLS/HR; Start 07/07/16 at 13:00 Levothyroxine Sodium (Synthroid) 50 mcg DAILY@06 PO Last administered on 05:21; Admin Dose 50 MCG; Start 07/08/16 at 06:00 Aspirin (Halfprin) 81 mg DAILY PO Last administered on 07/08/16 10:57; Admin Dose 81 MG; Start 07/07/16 at 16:30 Insulin Glargine (Lantus) 10 unit BID SC Last administered on 07/08/16 10:59; Admin Dose 10 UNIT; Start 07/08/16 at 09:00 Metoprolol Tartrate (Lopressor) 25 mg BID PO Last administered on 07/08/16 10: 57; Admin Dose 25 MG; Start 07/08/16 at 09:00 KEILA DORSEY MD Jul 08, 2016 12:59
[2016-07-08] MEDS: AZITHROMYCIN 500MG/NS (PMX) 250 ML IVPB SCH (13:51)
[2016-07-08] MEDS: ACETAMINOPHEN 325 MG TAB PO PRN (15:27)
--- NOTE | 2016-07-08 17:35 | CONS ---
Date/Time of Note Date/Time of Note DATE: 07/08/16 TIME: 17:29 Assessment/Plan Assessment/Plan Problems: (1) Diabetes mellitus type 2 in obese Status: Chronic Comment: She is on a regimen for this. Her needs will change as we get her thyroid status under control. Please note that we probably should look at revamping the regimen she was on as an outpatient which was metformin a gram twice daily with Levemir once a day. (2) Acquired hypothyroidism Status: Chronic Comment: She was on levothyroxine 112 g a day. If all she missed with 6 doses that would not explain what is going on here. Either she is stopped recently absorbing due to bowel edema from the heart failure or her dosage was not enough. Regardless in the note raise up her dosage and bring her under control. This needs to be brought under control to allow the heart failure be brought under control (3) Essential hypertension Status: Chronic Comment: She is on a combination of JING inhibitor and beta-lizy appropriately (4) Hyperlipidemia associated with type 2 diabetes mellitus Status: Chronic Comment: She is on statin therapy appropriately (5) Acute congestive heart failure with left ventricular diastolic dysfunction Status: Acute Comment: She is on JING inhibitor and beta-lizy and she is being diuresed. Correction of the hypothyroidism will be of assistance here (6) Diastolic dysfunction Status: Chronic Comment: Beta-lizy and JING inhibitor appropriate here (7) Rheumatoid arthritis Status: Chronic Comment: She has been under the care of Dr. Danial Bhatt for this for some time. She is off of her medications but was on a number of medications which may have rendered her somewhat immunosuppressed. I will defer off to the primary team contacting Dr. Bhatt for further details Qualifiers: Qualified Code: M06.9 - Rheumatoid arthritis involving multiple sites, unspecified rheumatoid factor presence (8) Obesity due to excess calories Status: Chronic Comment: Counseled Qualifiers: Qualified Code: E66.09 - Non morbid obesity due to excess calories Consultation Date/Type/Reason Admit Date/Time Jul 06, 2016 at 20:28 Date of Consultation: Jul 08, 2016 Type of Consultation: Endocrinology Reason for Consultation Decompensated hypothyroidism; diabetes mellitus type 2; hypertension; hyperlipidemia; diastolic dysfunction with acute heart failure Referring Provider: KEILA DORSEY MD Hx of Present Illness 55-year-old female who normally gets her care through [facility]. She has been on levothyroxine a dosage of 112 g once a day. To the best of her knowledge she had not had hypothyroidism i.e. she was compensated however her care has been somewhat disjointed recently. She has missed 6 days of medications. Please see the history of present illness however she comes in with what had been labeled as pneumonia which is in fact heart failure in the setting of severe diastolic dysfunction and hypothyroidism. Constitutional: no complaints Eyes: no complaints, No pain, No visual change ENT: no complaints, No discharge, No sore throat Respiratory: pain, shortness of breath, wheezing (has an inhaler but has not needed it.), No pleuritic pain Cardiovascular: No chest pain, No palpitations Gastrointestinal: nausea, other (Abdominal distention), vomiting Genitourinary: No discharge, No dysuria, No hematuria Musculoskeletal: No back pain, No neck pain Skin: no complaints Neurologic: headache (mild. worse with cough) Psychological: no complaints Immunologic: pruritis, rhinitis Past Medical History Medical History: diabetes, high cholesterol, hypertension, hypothyroid, other ( asthma; No bronchitis or Seasonal Allergies.Arthritis. Fibromyalgia) Family History Significant Family History: diabetes, hypertension Social History Alcohol Use: none Smoking Status: Never smoker Drug Use: none Exam/Review of Systems Vital Signs Vitals Vital Signs Date Time Temp Pulse Resp B/P Pulse Ox O2 Delivery O2 Flow Rate FiO2 07/08/16 16:17 77 07/08/16 15:47 98.3 18 146/70 93 07/08/16 13:19 21 07/08/16 08:00 Nasal Cannula 2.0 Intake and Output 07/07/16 07/07/16 07/08/16 15:00 23:00 07:00 Intake Total 960 ml 600 ml Balance 960 ml 600 ml Exam Constitutional: alert, oriented Eyes: EOMI, nl conjunctiva, nl lids, nl sclera ENMT: mucosa pink and moist, nl external ears & nose, nl lips & teeth, nl nasal mucosa & septum Neck: non-tender, supple, thyromegaly (Thyroid modestly enlarged firm and woody texture) Respiratory: crackles/rales, normal air movement Cardiovascular: nl pulses, regular rate and rhythm Gastrointestinal: nl liver, spleen, non-tender, soft Results Result Diagram: 07/08/16 0335 07/08/16334 Results 24 hrs Laboratory Tests Test 07/07/16 17:37 07/07/16 20:17 07/07/16 21:47 07/08/16 02:22 Bedside Glucose 214 343 H 179 Creatine Kinase 53 Creatine Kinase Index 1.6 Creatinine Kinase MB (Mass) 0.84 Troponin I 0.056 Test 07/08/16 03:35 07/08/16 08:22 07/08/16 12:43 Anion Gap 11 Anisocytosis 1+ Basophils # 0.0 Basophils % 0.2 Blood Urea Nitrogen 13 Calcium Level 7.9 L Carbon Dioxide Level 31 Chloride Level 100 Cholesterol Level 187 Cholesterol/HDL Ratio 7.1 Creatine Kinase 54 Creatine Kinase Index 1.7 Creatinine 0.61 Creatinine Kinase MB (Mass) 0.94 Eosinophils # 0.0 Eosinophils % 0.8 Free Thyroxine 0.60 L Free Triiodothyronine (T3) pg/mL 2.85 Glucose Level 179 HDL Cholesterol 26 L Hematocrit 36.0 L Hemoglobin 11.2 L LDL Cholesterol, Calculated 125 Lymphocytes # 3.4 H Lymphocytes % 65.6 H Magnesium Level 2.5 Mean Corpuscular Hemoglobin 27.0 L Mean Corpuscular Hemoglobin Concent 31.1 L Mean Corpuscular Volume 86.7 Mean Platelet Volume 10.3 Monocytes # 0.4 Monocytes % 8.1 Neutrophils # 1.3 L Neutrophils % 25.1 L Nucleated Red Blood Cells # 0.0 Nucleated Red Blood Cells % 0.0 Ovalocytes FEW Platelet Count 238 Platelet Estimate PLT APPEAR ADEQUATE Potassium Level 3.2 L Red Blood Count 4.15 L Red Cell Distribution Width 14.4 Sodium Level 139 Thyroid Stimulating Hormone (TSH) 70.000 H Triglycerides Level 180 H Troponin I 0.072 White Blood Count 5.2 Bedside Glucose 178 180 Medications Medications Current Medications Nitroglycerin (Nitroglycerin (Sl Tab) 0.4 Mg) 1 tab Q5M PRN SL CHEST PAIN; Start 07/06/16 at 22:30 Acetaminophen (Tylenol Tab) 650 mg Q6H PRN PO PAIN LEVEL 1-3 OR FEVER Last administered on 07/08/16 15:27; Admin Dose 650 MG; Start 07/06/16 at 22:30 Famotidine (Pepcid) 20 mg Q12 PO Last administered on 07/08/16 10:57; Admin Dose 20 MG; Start 07/07/16 at 09:00 Diagnostic Test (Pha) (Accucheck) 1 ea 02 XX Last administered on 07/08/16 02: 23; Admin Dose 1 EA; Start 07/07/16 at 02:00 Miscellaneous Information 1 ea NOTE XX ; Start 07/06/16 at 23:00 Glucose (Glutose) 15 gm Q15M PRN PO DECREASED GLUCOSE; Start 07/06/16 at 23:00 Glucose (Glutose) 22.5 gm Q15M PRN PO DECREASED GLUCOSE; Start 07/06/16 at 23:00 Dextrose (D50w Syringe) 25 ml Q15M PRN IV DECREASED GLUCOSE; Start 07/06/16 at 23:00 Dextrose (D50w Syringe) 50 ml Q15M PRN IV DECREASED GLUCOSE; Start 07/06/16 at 23:00 Glucagon (Glucagen) 1 mg Q15M PRN IM DECREASED GLUCOSE; Start 07/06/16 at 23:00 Glucose (Glutose) 15 gm Q15M PRN BUCCAL DECREASED GLUCOSE; Start 07/06/16 at 23: 00 Promethazine HCl/ Codeine (Phenergan/ Codeine) 10 ml Q4H PRN PO COUGH Last administered on 07/08/16 06:41; Admin Dose 10 ML; Start 07/06/16 at 23:30 Lisinopril (Zestril) 20 mg DAILY PO Last administered on 07/08/16 10:57; Admin Dose 20 MG; Start 07/07/16 at 09:00 Hydralazine HCl 10 mg 10 mg Q4H PRN IV ELEVATED BLOOD PRESSURE; Start 07/06/16 at 23:30 Azithromycin 250 ml @ 250 mls/hr Q24H IVPB Last administered on 07/08/16 13:51 ; Admin Dose 250 MLS/HR; Start 07/07/16 at 13:30 Ceftriaxone Sodium (Rocephin) 50 ml @ 100 mls/hr Q24H IVPB Last administered on 07/08/16 12:43; Admin Dose 100 MLS/HR; Start 07/07/16 at 13:00 Levothyroxine Sodium (Synthroid) 50 mcg DAILY@06 PO Last administered on 05:21; Admin Dose 50 MCG; Start 07/08/16 at 06:00 Aspirin (Halfprin) 81 mg DAILY PO Last administered on 07/08/16 10:57; Admin Dose 81 MG; Start 07/07/16 at 16:30 Insulin Glargine (Lantus) 10 unit BID SC Last administered on 07/08/16 10:59; Admin Dose 10 UNIT; Start 07/08/16 at 09:00 Metoprolol Tartrate (Lopressor) 25 mg BID PO Last administered on 07/08/16 10: 57; Admin Dose 25 MG; Start 07/08/16 at 09:00 Atorvastatin Calcium (Lipitor) 10 mg HS PO ; Start 07/08/16 at 21:00 DANIAL PYLE MD Jul 08, 2016 17:35
[2016-07-08] MEDS ORDERED: LEVOTHYROXINE 150 MCG TAB PO ONE (18:30)
[2016-07-08] MEDS ORDERED: SPIRONOLACTONE 50 MG TAB PO ONE (18:30)
[2016-07-08] MEDS: ATORVASTATIN 10 MG TAB PO SCH (20:39)
[2016-07-09] VITALS (14 sets, daily range): BP systolic 138–186; BP diastolic 64–92; PULSE 68–76; RESP 18–20
[2016-07-09] MEDS: ALBUTEROL/IPRATROPIUM (NEB) 3 ML AMP HHN SCH ×4 (01:12→21:04)
[2016-07-09] MEDS: ACCUCHECK XX SCH (02:00)
[2016-07-09] MEDS: LEVOTHYROXINE 150 MCG TAB PO SCH (06:11)
[2016-07-09 07:31] LABS: ADD SCAN DIFF NO
[2016-07-09 07:38] LABS: BASOPHILS % 0.2 % (0.0-2.0); EOSINOPHILS # 0.1 10^3/ul (0.0-0.5); EOSINOPHILS % 1.6 % (0.0-7.0); HEMATOCRIT 35.9 % (37.0-47.0); HEMOGLOBIN 11.4 g/dl (12.0-16.0); LYMPHOCYTES # 2.6 10^3/ul (0.8-2.9); MEAN CORPUSCULAR HEMOGLOBIN 27.5 pg (29.0-33.0); MEAN CORPUSCULAR HGB CONC 31.8 g/dl (32.0-37.0); MEAN CORPUSCULAR VOLUME 86.7 fl (82.0-101.0); MEAN PLATELET VOLUME 10.4 fl (7.4-10.4); MONOCYTE # 0.3 10^3/ul (0.3-0.9); MONOCYTES % 7.7 % (0.0-11.0); NEUTROPHIL # 1.4 10^3/ul (1.6-7.5); NEUTROPHILS % 32.2 % (39.0-77.0); PLATELET COUNT 267 10^3/UL (140-415); RED BLOOD COUNT 4.14 10^6/ul (4.20-5.40); RED CELL DISTRIBUTION WIDTH 14.5 % (11.5-14.5); WHITE BLOOD COUNT 4.4 10^3/ul (4.8-10.8)
[2016-07-09 07:44] LABS: LYMPHOCYTES % 58.1 % (15.0-51.0)
[2016-07-09 07:50] LABS: POTASSIUM 3.7 mmol/L (3.5-5.1)
[2016-07-09 07:53] LABS: CREATININE 0.56 mg/dl (0.44-1.00)
[2016-07-09 07:54] LABS: CALCIUM 8.3 mg/dl (8.4-10.2); MAGNESIUM 1.9 mg/dl (1.7-2.5)
[2016-07-09] MEDS: INSULIN ASPART [NOVOLOG] 3 ML PEN SC SCH ×4 (08:00→21:00)
[2016-07-09] MEDS: FAMOTIDINE 20 MG TAB PO SCH ×2 (08:18→20:45)
[2016-07-09] MEDS: PROMETHAZINE/CODEINE 5ML CUP PO PRN ×2 (08:19→21:05)
[2016-07-09] MEDS: ASPIRIN (EC) 81 MG TAB PO SCH (08:19)
[2016-07-09] MEDS: METOPROLOL 25 MG TAB PO SCH ×3 (08:19→20:45)
[2016-07-09] MEDS: LISINOPRIL 20 MG TAB PO SCH ×2 (08:19→20:42)
[2016-07-09] MEDS: metFORMIN 500 MG TAB PO SCH ×2 (08:25→18:22)
--- NOTE | 2016-07-09 08:28 | CONS ---
Date/Time of Note Date/Time of Note DATE: 07/09/16 TIME: 08:25 Assessment/Plan Assessment/Plan Chief Complaint/Hosp Course Acute diastolic heart failure: EF preserved, mod LVH, grade 2 diastolic dysfunction. By exam she is still decompensated but improving Hypothyroidism: likely contributing to above. Mild troponin elevation: Very trivial at 0.06 x 2. ?PNA DM HTN: needs better control -lasix 20mg IV BID x 2 doses today, reassess tomorrow -add amlodipine 5mg daily -ASA, statin -lisinopril, MTP -management of hypothyroidism per galley worker Problems: Consultation Date/Type/Reason Admit Date/Time Jul 06, 2016 at 20:28 Initial Consult Date 07/07/16 Type of Consultation: Cardiology Referring Provider: KEILA DORSEY MD 24 HR Interval Summary Free Text/Dictation No o/n events. Found to have hypothyroidism and seen by galley worker. SOB improving. SBP high this am. Exam/Review of Systems Vital Signs Vitals Vital Signs Date Time Temp Pulse Resp B/P Pulse Ox O2 Delivery O2 Flow Rate FiO2 07/09/16 08:07 76 07/09/16 07:50 98.5 20 169/81 96 07/09/16 04:30 Room Air 07/09/16 01:12 21 07/08/16 23:39 2.0 Intake and Output 07/08/16 07/08/16 07/09/16 15:00 23:00 07:00 Intake Total 1150 ml 400 ml Balance 1150 ml 400 ml Exam Constitutional: alert, oriented Head: atraumatic, normocephalic Neck: jvd (9cm) Respiratory: crackles/rales, No clear to auscultation Cardiovascular: edema (1+), regular rate and rhythm Neurological: nl mental status, nl speech Results Result Diagram: 07/09/16 0640 07/09/16 0640 Results 24 hrs Laboratory Tests Test 07/08/16 12:43 07/08/16 17:39 07/08/16 17:51 07/08/16 20:34 Bedside Glucose 180 145 192 Hepatitis B Surface Antigen NEGATIVE Hepatitis C Antibody NEGATIVE Test 07/09/16 02:20 07/09/16 06:40 07/09/16 07:31 Bedside Glucose 127 125 Anion Gap 11 Basophils # 0.0 Basophils % 0.2 Blood Urea Nitrogen 13 Calcium Level 8.3 L Carbon Dioxide Level 32 H Chloride Level 102 Creatinine 0.56 Eosinophils # 0.1 Eosinophils % 1.6 Glucose Level 116 # Hematocrit 35.9 L Hemoglobin 11.4 L Lymphocytes # 2.6 Lymphocytes % 58.1 H Magnesium Level 1.9 Mean Corpuscular Hemoglobin 27.5 L Mean Corpuscular Hemoglobin Concent 31.8 L Mean Corpuscular Volume 86.7 Mean Platelet Volume 10.4 Monocytes # 0.3 Monocytes % 7.7 Neutrophils # 1.4 L Neutrophils % 32.2 L Nucleated Red Blood Cells # 0.0 Nucleated Red Blood Cells % 0.0 Platelet Count 267 Potassium Level 3.7 Red Blood Count 4.14 L Red Cell Distribution Width 14.5 Sodium Level 141 White Blood Count 4.4 L Medications Medications Current Medications Nitroglycerin (Nitroglycerin (Sl Tab) 0.4 Mg) 1 tab Q5M PRN SL CHEST PAIN; Start 07/06/16 at 22:30 Acetaminophen (Tylenol Tab) 650 mg Q6H PRN PO PAIN LEVEL 1-3 OR FEVER Last administered on 07/08/16 15:27; Admin Dose 650 MG; Start 07/06/16 at 22:30 Famotidine (Pepcid) 20 mg Q12 PO Last administered on 07/08/16 20:39; Admin Dose 20 MG; Start 07/07/16 at 09:00 Diagnostic Test (Pha) (Accucheck) 1 ea 02 XX Last administered on 07/08/16 02: 23; Admin Dose 1 EA; Start 07/07/16 at 02:00 Miscellaneous Information 1 ea NOTE XX ; Start 07/06/16 at 23:00 Glucose (Glutose) 15 gm Q15M PRN PO DECREASED GLUCOSE; Start 07/06/16 at 23:00 Glucose (Glutose) 22.5 gm Q15M PRN PO DECREASED GLUCOSE; Start 07/06/16 at 23:00 Dextrose (D50w Syringe) 25 ml Q15M PRN IV DECREASED GLUCOSE; Start 07/06/16 at 23:00 Dextrose (D50w Syringe) 50 ml Q15M PRN IV DECREASED GLUCOSE; Start 07/06/16 at 23:00 Glucagon (Glucagen) 1 mg Q15M PRN IM DECREASED GLUCOSE; Start 07/06/16 at 23:00 Glucose (Glutose) 15 gm Q15M PRN BUCCAL DECREASED GLUCOSE; Start 07/06/16 at 23: 00 Promethazine HCl/ Codeine (Phenergan/ Codeine) 10 ml Q4H PRN PO COUGH Last administered on 07/08/16 06:41; Admin Dose 10 ML; Start 07/06/16 at 23:30 Lisinopril (Zestril) 20 mg DAILY PO Last administered on 07/08/16 10:57; Admin Dose 20 MG; Start 07/07/16 at 09:00 Hydralazine HCl 10 mg 10 mg Q4H PRN IV ELEVATED BLOOD PRESSURE; Start 07/06/16 at 23:30 Azithromycin 250 ml @ 250 mls/hr Q24H IVPB Last administered on 07/08/16 13:51 ; Admin Dose 250 MLS/HR; Start 07/07/16 at 13:30 Ceftriaxone Sodium (Rocephin) 50 ml @ 100 mls/hr Q24H IVPB Last administered on 07/08/16 12:43; Admin Dose 100 MLS/HR; Start 07/07/16 at 13:00 Aspirin (Halfprin) 81 mg DAILY PO Last administered on 07/08/16 10:57; Admin Dose 81 MG; Start 07/07/16 at 16:30 Insulin Glargine (Lantus) 10 unit BID SC Last administered on 07/08/16 20:42; Admin Dose 10 UNIT; Start 07/08/16 at 09:00 Metoprolol Tartrate (Lopressor) 25 mg BID PO Last administered on 07/08/16 20: 40; Admin Dose 25 MG; Start 07/08/16 at 09:00 Atorvastatin Calcium (Lipitor) 10 mg HS PO Last administered on 07/08/16 20:39 ; Admin Dose 10 MG; Start 07/08/16 at 21:00 Levothyroxine Sodium (Synthroid) 150 mcg DAILY@06 PO Last administered on 06:11; Admin Dose 150 MCG; Start 07/09/16 at 06:00 Ibuprofen (Motrin) 800 mg Q8 PRN PO PAIN LEVEL 7-10; Start 07/09/16 at 07:15 Potassium Chloride 40 meq 40 meq ONCE ONCE PO ; Start 07/09/16 at 08:30; Stop 3 /9/17 at 08:31 Magnesium Sulfate (Magnesium Sulfate 2 Gm/50 ml) 50 ml @ 25 mls/hr ONCE ONCE IVPB ; Start 07/09/16 at 08:30; Stop 07/09/16 at 10:29 SEUN JONES Jul 09, 2016 08:28
[2016-07-09] MEDS ORDERED: MAGNESIUM SULFATE 2 GM/50 ML 50 ML IVPB ONE (08:30)
[2016-07-09] MEDS ORDERED: POTASSIUM CHLORIDE 20 MEQ POWDER FOR ORAL SOLN PO ONE (08:30)
[2016-07-09] MEDS: INSULIN GLARGINE [LANtus] 3 ML PEN SC SCH ×2 (08:31→21:00)
[2016-07-09] MEDS ORDERED: AMLODIPINE 5 MG TAB PO SCH (09:00)
--- NOTE | 2016-07-09 09:58 | RADRPT ---
PROCEDURE: Ultrasound of the abdomen and retroperitoneum. CLINICAL INDICATION: Abdominal pain and distension. TECHNIQUE: Multiple real-time longitudinal and transverse images of the abdomen were acquired util izing a curved array transducer. Images were reviewed on a high-resolution PACS workstation. COMPARISON: None FINDINGS: The liver is mildly enlarged. The liver is normal in size and echogenicity. No hepatic masses are seen. There is no evidence of intra or extrahepatic ductal dilatation. The common bile duct measur es 2.4 mm in maximal dimension. No gallstones or gallbladder wall thickening is seen. The visualized portions of the pancreas are unremarkable with obscuration of the tail of the pancrea s. No free fluid is identified. The spleen is normal and measures 10.9 cm. The kidneys are without calcifications or hydronephrosis. The kidneys are mildly enlarged bilateral ly. The right kidney measures 13.9 cm, and the left kidney measures 13.7 cm. The visualized portions of the aorta and inferior vena cava are unremarkable. IMPRESSION: 1. Hepatomegaly. 2. Mild bilateral nephromegaly. 3. Otherwise unremarkable ultrasound of the abdomen and retroperitoneum. RPTAT: KK .Benjamin Morejon MD, Date Time Electronically viewed and signed by .Benjamin Morejon MD, MD on 07/09/2016 09:58 .B/
[2016-07-09] MEDS: FUROSEMIDE 20 MG INJ IV SCH ×2 (12:04→18:22)
[2016-07-09] MEDS: IBUPROFEN 800 MG TAB PO PRN (12:11)
[2016-07-09] MEDS ORDERED: MONTELUKAST 10 MG TAB PO ONE (12:30)
--- NOTE | 2016-07-09 12:39 | CONS ---
Date/Time of Note Date/Time of Note DATE: 07/09/16 TIME: 12:35 Assessment/Plan Assessment/Plan Chief Complaint/Hosp Course 55-year-old female who normally gets her care through [facility]. She has been on levothyroxine a dosage of 112 g once a day. To the best of her knowledge she had not had hypothyroidism i.e. she was compensated however her care has been somewhat disjointed recently. She has missed 6 days of medications. Please see the history of present illness however she comes in with what had been labeled as pneumonia which is in fact heart failure in the setting of severe diastolic dysfunction and hypothyroidism. Problems: (1) Diastolic dysfunction Status: Chronic Comment: She is tolerating the diuresis and the adjustment in the medications. Please note part of this is aggravated by the significant hypothyroidism. She will have a modest improvement with correction of the thyroid dysfunction but still needs the medications. This is of course aggravated by the chronic asthma that she also has on board. This will be a careful balance to give enough beta-lizy for the diastolic dysfunction without aggravating the asthma. (2) Asthma, moderate persistent, poorly-controlled Status: Chronic Comment: On review with the patient's family she has had a nebulizer at home for a long period time and she uses her rescue inhaler at least 6 days a week. She has never been on a controller medication. We will get her initiated with controller medications to bring this under control I would not give her oral or IV steroids at this moment (3) Acute congestive heart failure with left ventricular diastolic dysfunction Status: Acute Comment: Continue with the diuresis and correcting of the other aggravating factors (4) Essential hypertension Status: Chronic Comment: Her blood pressures risen with correcting the other features which gives us more room to use the medications to compensate for the internal organ derangements (5) Acquired hypothyroidism Status: Chronic Comment: She is on her thyroid hormone at a higher dose. I suspect this will balance out relatively well (6) Obesity due to excess calories Status: Chronic Comment: She has been counseled was on a calorie restriction. Please note corrected the thyroid will help somewhat will also help enormously is having her be able to breathe i.e. treating her asthma Qualifiers: Obesity severity: non-morbid Qualified Code: E66.09 - Non morbid obesity due to excess calories (7) Diabetes mellitus type 2 in obese Status: Chronic Comment: Adjust medications to avoid the side effects of the medications (8) Rheumatoid arthritis Status: Chronic Comment: As per the primary care team Qualifiers: Rheumatoid arthritis location: multiple sites Rheumatoid factor presence: unspecified presence Qualified Code: M06.9 - Rheumatoid arthritis involving multiple sites, unspecified rheumatoid factor presence Consultation Date/Type/Reason Admit Date/Time Jul 06, 2016 at 20:28 Initial Consult Date 07/08/16 Type of Consultation: Endocrinology Reason for Consultation Hypothyroidism decompensated with mixed edematous features; diabetes mellitus type 2 out of control; diastolic dysfunction with heart failure; diabetic medication intolerance Referring Provider: KEILA DORSEY MD 24 HR Interval Summary Free Text/Dictation Patient reports she does not want to take the metformin secondary to the large dose 1 g twice daily inducing diarrhea. She was never treated with a lower dose Constitutional: no complaints (No fevers chills or sweats) Detailed Summary Eyes: no complaints Respiratory: shortness of breath (She reports her shortness of breath has improved but is not resolved and she gets dyspnea on exertion) Cardiovascular: no complaints Gastrointestinal: no complaints Genitourinary: no complaints Exam/Review of Systems Vital Signs Vitals Vital Signs Date Time Temp Pulse Resp B/P Pulse Ox O2 Delivery O2 Flow Rate FiO2 07/09/16 12:15 73 07/09/16 11:33 98.3 19 167/92 92 07/09/16 08:00 Nasal Cannula 2.0 07/09/16 01:12 21 Intake and Output 07/08/16 07/08/16 07/09/16 15:00 23:00 07:00 Intake Total 1150 ml 400 ml Balance 1150 ml 400 ml Exam Constitutional: alert, oriented Neck: non-tender, supple Respiratory: crackles/rales, diminished breath sounds, wheezing Cardiovascular: nl pulses, regular rate and rhythm Extremities: normal pulses Results Result Diagram: 07/09/16 0640 07/09/16 0640 Results 24 hrs Laboratory Tests Test 07/08/16 12:43 07/08/16 17:39 07/08/16 17:51 07/08/16 20:34 Bedside Glucose 180 145 192 Hepatitis B Surface Antigen NEGATIVE Hepatitis C Antibody NEGATIVE Test 07/09/16 02:20 07/09/16 06:40 07/09/16 07:31 07/09/16 11:37 Bedside Glucose 127 125 160 Anion Gap 11 Basophils # 0.0 Basophils % 0.2 Blood Urea Nitrogen 13 Calcium Level 8.3 L Carbon Dioxide Level 32 H Chloride Level 102 Creatinine 0.56 Eosinophils # 0.1 Eosinophils % 1.6 Glucose Level 116 # Hematocrit 35.9 L Hemoglobin 11.4 L Lymphocytes # 2.6 Lymphocytes % 58.1 H Magnesium Level 1.9 Mean Corpuscular Hemoglobin 27.5 L Mean Corpuscular Hemoglobin Concent 31.8 L Mean Corpuscular Volume 86.7 Mean Platelet Volume 10.4 Monocytes # 0.3 Monocytes % 7.7 Neutrophils # 1.4 L Neutrophils % 32.2 L Nucleated Red Blood Cells # 0.0 Nucleated Red Blood Cells % 0.0 Platelet Count 267 Potassium Level 3.7 Red Blood Count 4.14 L Red Cell Distribution Width 14.5 Sodium Level 141 White Blood Count 4.4 L Medications Medications Current Medications Nitroglycerin (Nitroglycerin (Sl Tab) 0.4 Mg) 1 tab Q5M PRN SL CHEST PAIN; Start 07/06/16 at 22:30 Acetaminophen (Tylenol Tab) 650 mg Q6H PRN PO PAIN LEVEL 1-3 OR FEVER Last administered on 07/08/16 15:27; Admin Dose 650 MG; Start 07/06/16 at 22:30 Famotidine (Pepcid) 20 mg Q12 PO Last administered on 07/09/16 08:18; Admin Dose 20 MG; Start 07/07/16 at 09:00 Diagnostic Test (Pha) (Accucheck) 1 ea 02 XX Last administered on 07/08/16 02: 23; Admin Dose 1 EA; Start 07/07/16 at 02:00 Miscellaneous Information 1 ea NOTE XX ; Start 07/06/16 at 23:00 Glucose (Glutose) 15 gm Q15M PRN PO DECREASED GLUCOSE; Start 07/06/16 at 23:00 Glucose (Glutose) 22.5 gm Q15M PRN PO DECREASED GLUCOSE; Start 07/06/16 at 23:00 Dextrose (D50w Syringe) 25 ml Q15M PRN IV DECREASED GLUCOSE; Start 07/06/16 at 23:00 Dextrose (D50w Syringe) 50 ml Q15M PRN IV DECREASED GLUCOSE; Start 07/06/16 at 23:00 Glucagon (Glucagen) 1 mg Q15M PRN IM DECREASED GLUCOSE; Start 07/06/16 at 23:00 Glucose (Glutose) 15 gm Q15M PRN BUCCAL DECREASED GLUCOSE; Start 07/06/16 at 23: 00 Promethazine HCl/ Codeine (Phenergan/ Codeine) 10 ml Q4H PRN PO COUGH Last administered on 07/09/16 08:19; Admin Dose 10 ML; Start 07/06/16 at 23:30 Hydralazine HCl 10 mg 10 mg Q4H PRN IV ELEVATED BLOOD PRESSURE; Start 07/06/16 at 23:30 Azithromycin 250 ml @ 250 mls/hr Q24H IVPB Last administered on 07/08/16 13:51 ; Admin Dose 250 MLS/HR; Start 07/07/16 at 13:30 Ceftriaxone Sodium (Rocephin) 50 ml @ 100 mls/hr Q24H IVPB Last administered on 07/08/16 12:43; Admin Dose 100 MLS/HR; Start 07/07/16 at 13:00 Aspirin (Halfprin) 81 mg DAILY PO Last administered on 07/09/16 08:19; Admin Dose 81 MG; Start 07/07/16 at 16:30 Insulin Glargine (Lantus) 10 unit BID SC Last administered on 07/09/16 08:31; Admin Dose 10 UNIT; Start 07/08/16 at 09:00 Atorvastatin Calcium (Lipitor) 10 mg HS PO Last administered on 07/08/16 20:39 ; Admin Dose 10 MG; Start 07/08/16 at 21:00 Levothyroxine Sodium (Synthroid) 150 mcg DAILY@06 PO Last administered on 06:11; Admin Dose 150 MCG; Start 07/09/16 at 06:00 Ibuprofen (Motrin) 800 mg Q8 PRN PO PAIN LEVEL 7-10 Last administered on 12:11; Admin Dose 800 MG; Start 07/09/16 at 07:15 Lisinopril (Zestril) 20 mg BID PO ; Start 07/09/16 at 21:00 Metoprolol Tartrate (Lopressor) 50 mg BID PO Last administered on 07/09/16 12: 08; Admin Dose 50 MG; Start 07/09/16 at 10:00 Salmeterol Xinafoate/ Fluticasone (Advair 250/50 Diskus) 1 inh BID INH ; Start 07/09/16 at 12:30; Status UNV Montelukast Sodium (Singulair) 10 mg HS PO ; Start 07/09/16 at 21:00; Status UNV Montelukast Sodium (Singulair) 10 mg ONCE ONCE PO ; Start 07/09/16 at 12:30; Stop 07/09/16 at 12:31; Status DIPTIV KATINA PYLE MD Jul 09, 2016 12:39
[2016-07-09] MEDS ORDERED: FUROSEMIDE 40 MG INJ IV ONE (13:00)
[2016-07-09] MEDS ORDERED: SPIRONOLACTONE 25 MG TAB PO ONE (13:00)
[2016-07-09] MEDS: SALMETEROL/FLUTICASONE 250/50 INHA INH SCH ×2 (14:01→20:40)
[2016-07-09] MEDS: CEFTRIAXONE 1 GM/50 ML (PMX) 50 ML IVPB SCH (14:18)
[2016-07-09] MEDS: AZITHROMYCIN 500MG/NS (PMX) 250 ML IVPB SCH (15:16)
--- NOTE | 2016-07-09 15:37 | PN ---
Date/Time of Note Date/Time of Note DATE: 07/09/16 TIME: 15:34 Assessment/Plan VTE Prophylaxis VTE Prophylaxis Intervention: SCD's Lines/Catheters IV C[facility]ter Type [facility] Peripheral IV Urinary Cath still in place: No Assessment/Plan Chief Complaint/Hosp Course Assessment/Plan 1) Pneumonia - Continue Rocephin and Azithromycin IV daily - CBC in AM 2) Asthma - Start DuoNebs QID and Albuterol Nebs Q 2 hours prn. 3) Diabetes Type 2 - Carb Counting Diet - FSBS AC and HS - Resume metformin and insulin/Lantus - BMP in AM 4. Hypothyroidism, continue Synthroid, statistical engineer has been consulted 5. NST LA, troponin leak, is likely secondary to frequent cough, cardiology has been consulted, continue aspirin, 2D echocardiogram demonstrated ejection fraction of 55% and follow cardiology recommendations 6. Hypokalemia, repleted 7. Dyslipidemia, start Lipitor 8. Diastolic dysfunction, continue diuretics, this also may be secondary to severe hypothyroidism. Follow cardiology recommendations We will continue monitor patient closely for recommendation management treatment as clinical course Plan to discharge home tomorrow Problems: Subjective 24 Hr Interval Summary Free Text/Dictation Patient respiratory status has been improving Denies of having any chest pain Continues to complain of having fatigability Tolerating p.o. intake Exam/Review of Systems Vital Signs Vitals Vital Signs Date Time Temp Pulse Resp B/P Pulse Ox O2 Delivery O2 Flow Rate FiO2 07/09/16 15:15 67 20 95 21 07/09/16 14:00 154/68 07/09/16 11:33 98.3 07/09/16 08:00 Nasal Cannula 2.0 Intake and Output 07/08/16 07/08/16 07/09/16 15:00 23:00 07:00 Intake Total 1150 ml 400 ml Balance 1150 ml 400 ml Exam General: The patient is morbidly obese, Not in acute distress. HEENT: Atraumatic, normocephalic. The pupils are equal and round . Neck: Supple with full range of motion. Chest: Normal expansion of the thorax during inspiration Lungs: Clear to auscultation bilaterally Heart: Normal S1-S2, Regular rhythm and rate. Abdomen: Soft , nontender, nondistended , bowel sounds are present. Extremities: Normal to inspection, +1 edema no cyanosis Neurologic: Normal mental status,The patient is awake, alert and oriented . Results Result Diagram: 07/09/16 0640 07/09/16 0640 Results 24 hrs Laboratory Tests Test 07/08/16 17:39 07/08/16 17:51 07/08/16 20:34 07/09/16 02:20 Bedside Glucose 145 192 127 Hepatitis B Surface Antigen NEGATIVE Hepatitis C Antibody NEGATIVE Test 07/09/16 06:40 07/09/16 07:31 07/09/16 11:37 Anion Gap 11 Basophils # 0.0 Basophils % 0.2 Blood Urea Nitrogen 13 Calcium Level 8.3 L Carbon Dioxide Level 32 H Chloride Level 102 Creatinine 0.56 Eosinophils # 0.1 Eosinophils % 1.6 Glucose Level 116 # Hematocrit 35.9 L Hemoglobin 11.4 L Lymphocytes # 2.6 Lymphocytes % 58.1 H Magnesium Level 1.9 Mean Corpuscular Hemoglobin 27.5 L Mean Corpuscular Hemoglobin Concent 31.8 L Mean Corpuscular Volume 86.7 Mean Platelet Volume 10.4 Monocytes # 0.3 Monocytes % 7.7 Neutrophils # 1.4 L Neutrophils % 32.2 L Nucleated Red Blood Cells # 0.0 Nucleated Red Blood Cells % 0.0 Platelet Count 267 Potassium Level 3.7 Red Blood Count 4.14 L Red Cell Distribution Width 14.5 Sodium Level 141 White Blood Count 4.4 L Bedside Glucose 125 160 Medications Medications Current Medications Nitroglycerin (Nitroglycerin (Sl Tab) 0.4 Mg) 1 tab Q5M PRN SL CHEST PAIN; Start 07/06/16 at 22:30 Acetaminophen (Tylenol Tab) 650 mg Q6H PRN PO PAIN LEVEL 1-3 OR FEVER Last administered on 07/08/16 15:27; Admin Dose 650 MG; Start 07/06/16 at 22:30 Famotidine (Pepcid) 20 mg Q12 PO Last administered on 07/09/16 08:18; Admin Dose 20 MG; Start 07/07/16 at 09:00 Diagnostic Test (Pha) (Accucheck) 1 ea 02 XX Last administered on 07/08/16 02: 23; Admin Dose 1 EA; Start 07/07/16 at 02:00 Miscellaneous Information 1 ea NOTE XX ; Start 07/06/16 at 23:00 Glucose (Glutose) 15 gm Q15M PRN PO DECREASED GLUCOSE; Start 07/06/16 at 23:00 Glucose (Glutose) 22.5 gm Q15M PRN PO DECREASED GLUCOSE; Start 07/06/16 at 23:00 Dextrose (D50w Syringe) 25 ml Q15M PRN IV DECREASED GLUCOSE; Start 07/06/16 at 23:00 Dextrose (D50w Syringe) 50 ml Q15M PRN IV DECREASED GLUCOSE; Start 07/06/16 at 23:00 Glucagon (Glucagen) 1 mg Q15M PRN IM DECREASED GLUCOSE; Start 07/06/16 at 23:00 Glucose (Glutose) 15 gm Q15M PRN BUCCAL DECREASED GLUCOSE; Start 07/06/16 at 23: 00 Promethazine HCl/ Codeine (Phenergan/ Codeine) 10 ml Q4H PRN PO COUGH Last administered on 07/09/16 08:19; Admin Dose 10 ML; Start 07/06/16 at 23:30 Hydralazine HCl 10 mg 10 mg Q4H PRN IV ELEVATED BLOOD PRESSURE; Start 07/06/16 at 23:30 Azithromycin 250 ml @ 250 mls/hr Q24H IVPB Last administered on 07/09/16 15:16 ; Admin Dose 250 MLS/HR; Start 07/07/16 at 13:30 Ceftriaxone Sodium (Rocephin) 50 ml @ 100 mls/hr Q24H IVPB Last administered on 07/09/16 14:18; Admin Dose 100 MLS/HR; Start 07/07/16 at 13:00 Aspirin (Halfprin) 81 mg DAILY PO Last administered on 07/09/16 08:19; Admin Dose 81 MG; Start 07/07/16 at 16:30 Insulin Glargine (Lantus) 10 unit BID SC Last administered on 07/09/16 08:31; Admin Dose 10 UNIT; Start 07/08/16 at 09:00 Atorvastatin Calcium (Lipitor) 10 mg HS PO Last administered on 07/08/16 20:39 ; Admin Dose 10 MG; Start 07/08/16 at 21:00 Levothyroxine Sodium (Synthroid) 150 mcg DAILY@06 PO Last administered on 06:11; Admin Dose 150 MCG; Start 07/09/16 at 06:00 Ibuprofen (Motrin) 800 mg Q8 PRN PO PAIN LEVEL 7-10 Last administered on 12:11; Admin Dose 800 MG; Start 07/09/16 at 07:15 Metoprolol Tartrate (Lopressor) 50 mg BID PO Last administered on 07/09/16 12: 08; Admin Dose 50 MG; Start 07/09/16 at 10:00 Salmeterol Xinafoate/ Fluticasone (Advair 250/50 Diskus) 1 inh BID INH Last administered on 07/09/16 14:01; Admin Dose 1 INH; Start 07/09/16 at 12:30 Montelukast Sodium (Singulair) 10 mg HS PO ; Start 07/10/16 at 21:00 Lisinopril (Zestril) 40 mg BID PO ; Start 07/09/16 at 21:00 KEILA DORSEY MD Jul 09, 2016 15:37
[2016-07-09] MEDS: ACETAMINOPHEN 325 MG TAB PO PRN (18:21)
[2016-07-09] MEDS: ATORVASTATIN 10 MG TAB PO SCH (20:45)
[2016-07-09] MEDS ORDERED: LISINOPRIL 20 MG TAB PO SCH (21:00)
[2016-07-10] VITALS (11 sets, daily range): BP systolic 142–192; BP diastolic 66–91; PULSE 70–74; RESP 19–20
[2016-07-10] MEDS: ACCUCHECK XX SCH (02:00)
[2016-07-10] MEDS: ALBUTEROL/IPRATROPIUM (NEB) 3 ML AMP HHN SCH ×3 (02:20→13:26)
[2016-07-10] MEDS: LEVOTHYROXINE 150 MCG TAB PO SCH (05:18)
[2016-07-10] MEDS: INSULIN ASPART [NOVOLOG] 3 ML PEN SC SCH ×3 (08:00→17:40)
[2016-07-10 08:24] LABS: POTASSIUM 4.1 mmol/L (3.5-5.1)
[2016-07-10 08:26] LABS: CREATININE 0.57 mg/dl (0.44-1.00)
[2016-07-10 08:27] LABS: CALCIUM 8.6 mg/dl (8.4-10.2)
[2016-07-10] MEDS: FAMOTIDINE 20 MG TAB PO SCH (08:37)
[2016-07-10] MEDS: SALMETEROL/FLUTICASONE 250/50 INHA INH SCH (08:38)
[2016-07-10] MEDS: IBUPROFEN 800 MG TAB PO PRN (08:38)
[2016-07-10] MEDS: ASPIRIN (EC) 81 MG TAB PO SCH (08:38)
[2016-07-10] MEDS: LISINOPRIL 20 MG TAB PO SCH (08:39)
[2016-07-10] MEDS: METOPROLOL 25 MG TAB PO SCH (08:39)
[2016-07-10] MEDS: PROMETHAZINE/CODEINE 5ML CUP PO PRN (08:40)
[2016-07-10] MEDS: INSULIN GLARGINE [LANtus] 3 ML PEN SC SCH (08:47)
[2016-07-10] MEDS ORDERED: AMLODIPINE 10 MG TAB PO SCH (10:30)
--- NOTE | 2016-07-10 10:30 | CONS ---
Date/Time of Note Date/Time of Note DATE: 07/10/16 TIME: 10:25 Assessment/Plan Assessment/Plan Chief Complaint/Hosp Course Acute diastolic heart failure: EF preserved, mod LVH, grade 2 diastolic dysfunction. Approaching euvolemia Hypothyroidism: likely contributing to above. Mild troponin elevation: Very trivial at 0.06 x 2. 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 SOB improved. Exam/Review of Systems Vital Signs Vitals Vital Signs Date Time Temp Pulse Resp B/P Pulse Ox O2 Delivery O2 Flow Rate FiO2 07/10/16 08:14 71 07/10/16 07:53 98.6 20 192/91 96 07/10/16 07:50 21 07/10/16 05:35 Room Air 07/09/16 08:00 2.0 Intake and Output 07/09/16 07/09/16 07/10/16 15:00 23:00 07:00 Intake Total 600 ml 375 ml Balance 600 ml 375 ml Exam Constitutional: alert, oriented Psych: no complaints Head: atraumatic, normocephalic Neck: No jvd Respiratory: crackles/rales (mild), No clear to auscultation Cardiovascular: edema (trace), regular rate and rhythm, No systolic murmur Neurological: nl mental status, nl speech Results Result Diagram: 07/09/16 0640 07/10/16 0720 Results 24 hrs Laboratory Tests Test 07/09/16 11:37 07/09/16 16:59 07/09/16 20:50 07/10/16 07:20 Bedside Glucose 160 193 131 Anion Gap 12 Blood Urea Nitrogen 12 Calcium Level 8.6 Carbon Dioxide Level 32 H Chloride Level 105 Creatinine 0.57 Glucose Level 95 Potassium Level 4.1 Sodium Level 145 H Test 07/10/16 07:57 Bedside Glucose 101 Medications Medications Current Medications Nitroglycerin (Nitroglycerin (Sl Tab) 0.4 Mg) 1 tab Q5M PRN SL CHEST PAIN; Start 07/06/16 at 22:30 Acetaminophen (Tylenol Tab) 650 mg Q6H PRN PO PAIN LEVEL 1-3 OR FEVER Last administered on 07/09/16 18:21; Admin Dose 650 MG; Start 07/06/16 at 22:30 Famotidine (Pepcid) 20 mg Q12 PO Last administered on 07/10/16 08:37; Admin Dose 20 MG; Start 07/07/16 at 09:00 Diagnostic Test (Pha) (Accucheck) 1 ea 02 XX Last administered on 07/08/16 02: 23; Admin Dose 1 EA; Start 07/07/16 at 02:00 Miscellaneous Information 1 ea NOTE XX ; Start 07/06/16 at 23:00 Glucose (Glutose) 15 gm Q15M PRN PO DECREASED GLUCOSE; Start 07/06/16 at 23:00 Glucose (Glutose) 22.5 gm Q15M PRN PO DECREASED GLUCOSE; Start 07/06/16 at 23:00 Dextrose (D50w Syringe) 25 ml Q15M PRN IV DECREASED GLUCOSE; Start 07/06/16 at 23:00 Dextrose (D50w Syringe) 50 ml Q15M PRN IV DECREASED GLUCOSE; Start 07/06/16 at 23:00 Glucagon (Glucagen) 1 mg Q15M PRN IM DECREASED GLUCOSE; Start 07/06/16 at 23:00 Glucose (Glutose) 15 gm Q15M PRN BUCCAL DECREASED GLUCOSE; Start 07/06/16 at 23: 00 Promethazine HCl/ Codeine (Phenergan/ Codeine) 10 ml Q4H PRN PO COUGH Last administered on 07/10/16 08:40; Admin Dose 10 ML; Start 07/06/16 at 23:30 Hydralazine HCl 10 mg 10 mg Q4H PRN IV ELEVATED BLOOD PRESSURE Last administered on 07/10/16 10:06; Admin Dose 10 MG; Start 07/06/16 at 23:30 Ceftriaxone Sodium (Rocephin) 50 ml @ 100 mls/hr Q24H IVPB Last administered on 07/09/16 14:18; Admin Dose 100 MLS/HR; Start 07/07/16 at 13:00 Aspirin (Halfprin) 81 mg DAILY PO Last administered on 07/10/16 08:38; Admin Dose 81 MG; Start 07/07/16 at 16:30 Insulin Glargine (Lantus) 10 unit BID SC Last administered on 07/10/16 08:47; Admin Dose 10 UNIT; Start 07/08/16 at 09:00 Atorvastatin Calcium (Lipitor) 10 mg HS PO Last administered on 07/09/16 20:45 ; Admin Dose 10 MG; Start 07/08/16 at 21:00 Levothyroxine Sodium (Synthroid) 150 mcg DAILY@06 PO Last administered on 05:18; Admin Dose 150 MCG; Start 07/09/16 at 06:00 Ibuprofen (Motrin) 800 mg Q8 PRN PO PAIN LEVEL 7-10 Last administered on 08:38; Admin Dose 800 MG; Start 07/09/16 at 07:15 Metoprolol Tartrate (Lopressor) 50 mg BID PO Last administered on 07/10/16 08: 39; Admin Dose 50 MG; Start 07/09/16 at 10:00 Salmeterol Xinafoate/ Fluticasone (Advair 250/50 Diskus) 1 inh BID INH Last administered on 07/10/16 08:38; Admin Dose 1 INH; Start 07/09/16 at 12:30 Montelukast Sodium (Singulair) 10 mg HS PO ; Start 07/10/16 at 21:00 Lisinopril (Zestril) 40 mg BID PO Last administered on 07/10/16 08:39; Admin Dose 40 MG; Start 07/09/16 at 21:00 SEUN JONES Jul 10, 2016 10:29
[2016-07-10] MEDS: FUROSEMIDE 20 MG TAB PO SCH ×2 (11:29→17:39)
[2016-07-10] MEDS ORDERED: HYDROCODONE/APAP (5/325) TAB PO PRN (11:30)
--- NOTE | 2016-07-10 13:31 | CONS ---
Date/Time of Note Date/Time of Note DATE: 07/10/16 TIME: 13:28 Assessment/Plan Assessment/Plan Chief Complaint/Hosp Course 55-year-old female who normally gets her care through [facility]. She has been on levothyroxine a dosage of 112 g once a day. To the best of her knowledge she had not had hypothyroidism i.e. she was compensated however her care has been somewhat disjointed recently. She has missed 6 days of medications. Please see the history of present illness however she comes in with what had been labeled as pneumonia which is in fact heart failure in the setting of severe diastolic dysfunction and hypothyroidism. Problems: (1) Asthma, moderate persistent, poorly-controlled Status: Chronic Comment: Improving nicely with usage of the routine and standard medical cares. Should balance out well within approximately 1 week (2) Diastolic dysfunction Status: Chronic Comment: Stable and controlled on current regimen (3) Acute congestive heart failure with left ventricular diastolic dysfunction Status: Acute Comment: Resolving or nearly completely resolved (4) Hyperlipidemia associated with type 2 diabetes mellitus Status: Chronic Comment: On treatment (5) Essential hypertension Status: Chronic Comment: Full dose JING inhibitor and appropriately dosed beta-lizy and diuretics appropriate to use low to medium dose amlodipine (6) Acquired hypothyroidism Status: Chronic Comment: On medication replacement will be time to check the TSH in approximately 5 weeks (7) Diabetes mellitus type 2 in obese Status: Chronic Comment: Good control using the metformin at low dose which she is tolerating higher dosages are not tolerated by this patient. It would be appropriate to consider adding in a DPP for drug and mealtime Prandin (8) Obesity due to excess calories Status: Chronic Comment: Counseled Qualifiers: Obesity severity: non-morbid Qualified Code: E66.09 - Non morbid obesity due to excess calories (9) Rheumatoid arthritis Status: Chronic Qualifiers: Rheumatoid arthritis location: multiple sites Rheumatoid factor presence: unspecified presence Qualified Code: M06.9 - Rheumatoid arthritis involving multiple sites, unspecified rheumatoid factor presence Consultation Date/Type/Reason Admit Date/Time Jul 06, 2016 at 20:28 Initial Consult Date 07/08/16 Type of Consultation: Endocrinology Reason for Consultation Hypothyroidism with myxedematous features; diabetes mellitus type 2; asthma persistent moderate; diastolic dysfunction with acute heart failure Referring Provider: KEILA DORSEY MD 24 HR Interval Summary Constitutional: no complaints Detailed Summary Respiratory: shortness of breath (Dyspnea is improved she still has some wheezing) Cardiovascular: no complaints Gastrointestinal: no complaints Genitourinary: no complaints Exam/Review of Systems Vital Signs Vitals Vital Signs Date Time Temp Pulse Resp B/P Pulse Ox O2 Delivery O2 Flow Rate FiO2 07/10/16 13:26 60 18 95 21 07/10/16 11:55 98.3 164/79 07/10/16 05:35 Room Air 07/09/16 08:00 2.0 Intake and Output 07/09/16 07/09/16 07/10/16 15:00 23:00 07:00 Intake Total 600 ml 375 ml Balance 600 ml 375 ml Exam Constitutional: alert, oriented Neck: non-tender, supple Respiratory: normal air movement, wheezing Cardiovascular: nl pulses, regular rate and rhythm Gastrointestinal: nl liver, spleen, non-tender, soft Results Result Diagram: 07/09/16 0640 07/10/16 0720 Results 24 hrs Laboratory Tests Test 07/09/16 16:59 07/09/16 20:50 07/10/16 07:20 07/10/16 07:57 Bedside Glucose 193 131 101 Anion Gap 12 Blood Urea Nitrogen 12 Calcium Level 8.6 Carbon Dioxide Level 32 H Chloride Level 105 Creatinine 0.57 Glucose Level 95 Potassium Level 4.1 Sodium Level 145 H Test 07/10/16 11:33 Bedside Glucose 110 Medications Medications Current Medications Nitroglycerin (Nitroglycerin (Sl Tab) 0.4 Mg) 1 tab Q5M PRN SL CHEST PAIN; Start 07/06/16 at 22:30 Acetaminophen (Tylenol Tab) 650 mg Q6H PRN PO PAIN LEVEL 1-3 OR FEVER Last administered on 07/09/16 18:21; Admin Dose 650 MG; Start 07/06/16 at 22:30 Famotidine (Pepcid) 20 mg Q12 PO Last administered on 07/10/16 08:37; Admin Dose 20 MG; Start 07/07/16 at 09:00 Diagnostic Test (Pha) (Accucheck) 1 ea 02 XX Last administered on 07/08/16 02: 23; Admin Dose 1 EA; Start 07/07/16 at 02:00 Miscellaneous Information 1 ea NOTE XX ; Start 07/06/16 at 23:00 Glucose (Glutose) 15 gm Q15M PRN PO DECREASED GLUCOSE; Start 07/06/16 at 23:00 Glucose (Glutose) 22.5 gm Q15M PRN PO DECREASED GLUCOSE; Start 07/06/16 at 23:00 Dextrose (D50w Syringe) 25 ml Q15M PRN IV DECREASED GLUCOSE; Start 07/06/16 at 23:00 Dextrose (D50w Syringe) 50 ml Q15M PRN IV DECREASED GLUCOSE; Start 07/06/16 at 23:00 Glucagon (Glucagen) 1 mg Q15M PRN IM DECREASED GLUCOSE; Start 07/06/16 at 23:00 Glucose (Glutose) 15 gm Q15M PRN BUCCAL DECREASED GLUCOSE; Start 07/06/16 at 23: 00 Promethazine HCl/ Codeine (Phenergan/ Codeine) 10 ml Q4H PRN PO COUGH Last administered on 07/10/16 08:40; Admin Dose 10 ML; Start 07/06/16 at 23:30 Hydralazine HCl 10 mg 10 mg Q4H PRN IV ELEVATED BLOOD PRESSURE Last administered on 07/10/16 10:06; Admin Dose 10 MG; Start 07/06/16 at 23:30 Ceftriaxone Sodium (Rocephin) 50 ml @ 100 mls/hr Q24H IVPB Last administered on 07/09/16 14:18; Admin Dose 100 MLS/HR; Start 07/07/16 at 13:00 Aspirin (Halfprin) 81 mg DAILY PO Last administered on 07/10/16 08:38; Admin Dose 81 MG; Start 07/07/16 at 16:30 Insulin Glargine (Lantus) 10 unit BID SC Last administered on 07/10/16 08:47; Admin Dose 10 UNIT; Start 07/08/16 at 09:00 Atorvastatin Calcium (Lipitor) 10 mg HS PO Last administered on 07/09/16 20:45 ; Admin Dose 10 MG; Start 07/08/16 at 21:00 Levothyroxine Sodium (Synthroid) 150 mcg DAILY@06 PO Last administered on 05:18; Admin Dose 150 MCG; Start 07/09/16 at 06:00 Ibuprofen (Motrin) 800 mg Q8 PRN PO PAIN LEVEL 7-10 Last administered on 08:38; Admin Dose 800 MG; Start 07/09/16 at 07:15 Metoprolol Tartrate (Lopressor) 50 mg BID PO Last administered on 07/10/16 08: 39; Admin Dose 50 MG; Start 07/09/16 at 10:00 Salmeterol Xinafoate/ Fluticasone (Advair 250/50 Diskus) 1 inh BID INH Last administered on 07/10/16 08:38; Admin Dose 1 INH; Start 07/09/16 at 12:30 Montelukast Sodium (Singulair) 10 mg HS PO ; Start 07/10/16 at 21:00 Lisinopril (Zestril) 40 mg BID PO Last administered on 07/10/16 08:39; Admin Dose 40 MG; Start 07/09/16 at 21:00 Amlodipine Besylate (Norvasc) 10 mg DAILY PO Last administered on 07/10/16 11: 30; Admin Dose 10 MG; Start 07/10/16 at 10:30 Acetaminophen/ Hydrocodone Bitart ([place] (5/325)) 1 tab Q6H PRN PO PAIN Last administered on 07/10/16 11:31; Admin Dose 1 TAB; Start 07/10/16 at 11:30 KATINA PYLE MD Jul 10, 2016 13:31
[2016-07-10] MEDS: CEFTRIAXONE 1 GM/50 ML (PMX) 50 ML IVPB SCH (14:19)
--- NOTE | 2016-07-10 15:19 | PDOCDIS ---
Discharge Instructions CONDITION Patient Condition: Stable HOME CARE INSTRUCTIONS: Special Diet: carb control ACTIVITY: Activity Restrictions: Slowly Increase Activity Rest between Activity Avoid heavy lifting FOLLOW UP/APPOINTMENTS Appointments Follow-up with electric meter installer helper as outpatient in 1 week Follow up with heel buffer in 1-2 weeks Follow-up with PCP 1-2 weeks KEILA DORSEY MD Jul 10, 2016 15:19
[2016-07-10] MEDS ORDERED: LEVEM SC (15:28)
[2016-07-10] MEDS ORDERED: ATOR10TA65 PO (15:29)
[2016-07-10] MEDS ORDERED: HYDR-3498 PO (15:29)
[2016-07-10] MEDS ORDERED: SYN15 PO (15:29)
[2016-07-10] MEDS ORDERED: ASPI-664 PO (15:29)
[2016-07-10] MEDS ORDERED: CEPH500C PO (15:29)
[2016-07-10] MEDS ORDERED: AMLO-147 PO (15:29)
[2016-07-10] MEDS ORDERED: CARV6.25 PO (15:29)
[2016-07-10] MEDS ORDERED: LISI20TA11 PO (15:29)
[2016-07-10] MEDS ORDERED: Promethazine/Codeine Syp PO (15:29)
[2016-07-10] MEDS ORDERED: METF500T PO (15:29)
[2016-07-10] MEDS ORDERED: ADV25050 INH (15:29)
[2016-07-10] MEDS ORDERED: LAS20 PO (15:29)
--- NOTE | 2016-07-10 17:15 | DS ---
DATE OF ADMISSION: 07/06/2016 DATE OF DISCHARGE: 07/10/2016 CONSULTANTS: 1. Dr. Holland 2. Dr. Danial Arteaga. PROCEDURES: A 2D echocardiogram which demonstrated normal left ventricle systolic function, normal left ventricular cavity size, left ventricle wall thickness upper limits of normal, moderate concent felicia left ventricular hypertrophy, ejection fraction estimated at 55% pseudonormalization with mildly elevated left atrial pressure, stage II diastolic dysfunction, no significant valvular stenosis or regurgitation seen. DIAGNOSES 1. Pneumonia. The patient is status post Rocephin and azithromycin. We will discharge home on Kef mio and Levaquin. 2. Asthma. The patient is status post DuoNeb, albuterol. Will discharged on Advair and Combivent. The patient will be set up with a home nebulizer. 3. Diabetes mellitus type 2. On metformin and Levemir. 4. Hypothyroidism. Continue Synthroid. Endocrinology was consulted. 5. Troponin leak. Cardiology was consulted. The echocardiogram 5%. The patient will be con tinued on beta blockers, statin, aspirin. 6. Hypokalemia, repleted. 7. Dyslipidemia, on Lipitor. 8. Diastolic dysfunction. The patient has been placed on diuretics and JING inhibitor. This also m ay be secondary to severe hypothyroidism. Cardiology was consulted. 9. Morbid obesity. Diet and exercise was recommended. MEDICATIONS: 1. Amlodipine 10 mg. 2. Aspirin 81 mg 3. Lipitor 10 mg. 4. Coreg 6.25 mg 5. Keflex 500 mg. 6. Lasix 20 mg. 7. [place] 5/325. 8. Levothyroxine 150 mcg 9. Lisinopril 40 mg. 10. Metformin 500 mg. 11. Advair 250/50. 12. Promethazine/Codeine. 13. Levemir. ALLERGIES: SULFA. HOSPITAL COURSE: This is a pleasant 55-year-old female with past medical history of diabetes mellit us, asthma, dyslipidemia, hypothyroidism, who has not been compliant with her thyroid medication and blood pressure medication for 2 weeks, who was seen and evaluated at [facility] secondary to having cough, congestion x3 weeks with worsening of shortness of breath and generalized weakness. Patient has been having flu-like symptoms and has been having difficulty with ambulation and breat emmanuel problems. The patient also says she almost passed out. Upon evaluation at [facility] to insurance purposes, the patient was transferred to [facility] where ECG show ed poor R-wave progression oscillating [address] elevations in V2. There is T-wave flattening. She w as treated with Rocephin, azithromycin, and aspirin 325 mg. Cardiology was consulted during the cou rse of the hospitalization. The patient's troponin was found to be 0.063, 0.056. The the elevated troponin was likely secondary to patient's congestive heart failure. Patient obtained 2D echocardio gram which showed normal ejection fraction, stage II diastolic dysfunction. The patient had a reevaluation of thyroid panel in which her TSH was found to be 70, free T4 is 0.60 , free T3 2.85. Endocrinology was consulted. Patient admitted that she has not been compliant with her thyroid medication x2 weeks. She was started on 150 mcg of levothyroxine. The patient also was found to have a community-acquired pneumonia, was started on Rocephin and azith romycin. Her blood pressure was found to be uncontrolled and her blood pressure medication has been adjusted by the bindery library technical assistant and the medical team. This morning, the patient's blood pressure was 164/79 prior to her lisinopril, to be increased to 40 mg. At this time, the patient denies any chest pain, shortness of breath, nausea, vomiting, diarrhea. N o headache, dizziness. Her strength has improved significantly. She denies having any cough or con gestion. The Engraving Plate Maker has been consulted for obtaining her nebulizer at home, although at this time, the patient will be discharged on Combivent, Advair, cough medication, and antibiotics. CONDITION AT TIME OF DISCHARGE: Stable. Dictated By: KEILA ARTHUR/NTS Conf#: [id number] DID#: [id number]
[2016-07-10] MEDS: metFORMIN 500 MG TAB PO SCH (17:40)
[2016-07-10] MEDS ORDERED: MONTELUKAST 10 MG TAB PO SCH (21:00)
[2016-07-11] MEDS ORDERED: INSULIN GLARGINE [LANtus] 3 ML PEN SC SCH (09:00)
== END 2016-07-10 18:00 | disposition home or self-care (01) | DRG 193 ==
LOC: MS4 20:28
PROVIDERS: ADMIT Family Medicine; ATTEND Family Medicine
DX: J18.9 Pneumonia, unspecified organism (principal); I50.33 Acute on chronic diastolic (congestive) heart failure; J45.909 Unspecified asthma, uncomplicated; E11.9 Type 2 diabetes mellitus without complications; E03.9 Hypothyroidism, unspecified; I10 Essential (primary) hypertension; E78.5 Hyperlipidemia, unspecified; E87.6 Hypokalemia; Z68.34 Body mass index [BMI] 34.0-34.9, adult; M06.9 Rheumatoid arthritis, unspecified; E66.01 Morbid (severe) obesity due to excess calories
CPT/HCPCS: 71010; 76700; 80048; 80053; 80061; 82550; 82553; 82962; 83036; 83735; 84439; 84443; 84481; 84484; 85025; 86592; 86803; 87081; 87340; 93306; 94640; 94664; J1940; J0360; J0456; J0696; J1815; J3475; J3480

== ENCOUNTER 2016-07-14 12:39 | Emergency (ER) | payer OTHER ==
[~2016-07-14] VITALS: Ht 160 cm; Wt 83.0 kg
[~2016-07-14 12:39] MED LIST: ADV25050 INH; AMLO-147 PO; ASPI-664 PO; ATOR10TA65 PO; CARV6.25 PO; CEPH500C PO; HYDR-3498 PO; LAS20 PO; LEVEM SC; LISI20TA11 PO; METF500T PO; Promethazine/Codeine Syp PO; SYN15 PO
[2016-07-14 13:13] VITALS: Ht 160 cm; Wt 83.0 kg
[2016-07-14] MEDS ORDERED: ALBUTEROL 0.083% (NEB) 2.5 MG/3 ML AMP NEB STA (15:37)
[2016-07-14] MEDS ORDERED: IPRATROPIUM (NEB) 0.5 MG/2.5 ML AMP NEB STA (15:37)
[2016-07-14 16:13] LABS: ADD SCAN DIFF NO
[2016-07-14 16:17] LABS: BASOPHILS % 0.5 % (0.0-2.0); EOSINOPHILS # 0.2 10^3/ul (0.0-0.5); HEMATOCRIT 38.7 % (37.0-47.0); HEMOGLOBIN 12.5 g/dl (12.0-16.0); LYMPHOCYTES # 2.3 10^3/ul (0.8-2.9); LYMPHOCYTES % 30.4 % (15.0-51.0); MEAN CORPUSCULAR HEMOGLOBIN 27.4 pg (29.0-33.0); MEAN CORPUSCULAR HGB CONC 32.3 g/dl (32.0-37.0); MEAN CORPUSCULAR VOLUME 84.9 fl (82.0-101.0); MEAN PLATELET VOLUME 9.2 fl (7.4-10.4); MONOCYTE # 0.6 10^3/ul (0.3-0.9); MONOCYTES % 8.6 % (0.0-11.0); NEUTROPHIL # 4.4 10^3/ul (1.6-7.5); NEUTROPHILS % 58.4 % (39.0-77.0); PLATELET COUNT 563 10^3/UL (140-415); RED BLOOD COUNT 4.56 10^6/ul (4.20-5.40); RED CELL DISTRIBUTION WIDTH 13.7 % (11.5-14.5); WHITE BLOOD COUNT 7.5 10^3/ul (4.8-10.8)
[2016-07-14 16:25] LABS: POTASSIUM 3.7 mmol/L (3.5-5.1)
[2016-07-14 16:28] LABS: CALCIUM 9.2 mg/dl (8.4-10.2); CREATININE 0.65 mg/dl (0.44-1.00)
--- NOTE | 2016-07-14 16:29 | RADRPT ---
PROCEDURE: XR Chest. CLINICAL INDICATION: Asthma exacerbation TECHNIQUE: AP Portable chest. COMPARISON: 07/08/2016 chest x-ray FINDINGS: The soft tissues and bones are normal. Interval decreased bilateral perihilar interstitial infiltrat es or edema is noted. Mild focal consolidation is noted in the right upper lobe. No associated ple ural effusions are present. Mild cardiomegaly and vascular calcifications of the aortic arch are no kristin. No pneumothorax is present. IMPRESSION: 1. Right upper lobe residual consolidation with interval decreased bilateral interstitial edema or infiltrates when compared with 07/08/2016. 2. Mild cardiomegaly and atherosclerotic vascular disease RPTAT: HDC .Viad Cunha MD, MD Date Time Electronically viewed and signed by .Vida Cunha MD, on 07/14/2016 16:29 .C/
[2016-07-14] MEDS ORDERED: ALBUTEROL HFA 8 GM INHALER INH STA (16:32)
--- NOTE | 2016-07-14 16:36 | ERD ---
ER Documentation Chief Complaint Date/Time DATE: 07/14/16 TIME: 16:33 Chief Complaint sob x 4 days, cough and chest wall pain HPI Very pleasant 55-year-old female who has recent hospitalization diagnosed with pneumonia discharged on antibiotics. She was also diagnosed with asthma and sent home on inhaler. She presents because of shortness of breath. She states that since she has been discharged she received her nebulizer machine but not the medication. She also does not have her Ventolin inhaler. The patient describes persistent shortness of breath. No fevers. She states compliance with antibiotics. No chest pain or pleuritic pain or dyspnea on exertion. She did have a troponin elevation during recent hospitalization. She has no other complaints. ROS All systems reviewed and are negative except as per history of present illness. Medications Home Meds Active Scripts Hydrocodone Bit/Homatrop Me-Br ([place] 5-1.5 mg Tablet) 1 Each Tablet, 1 EACH PO TID Y for COUGH, #12 TAB Prov:GENARO MAIN MD 07/14/16 Albuterol Sulfate* (Albuterol Sulfate* Neb) 0.083%-3 Ml Neb, 2.5 MG NEB Q4 Y for SHORTNESS OF BREATH, #30 EA Prov:GENARO MAIN MD 07/14/16 Carvedilol* (Coreg*) 6.25 Mg Tablet, 6.25 MG PO BID, #60 TAB Prov:KEILA DORSEY MD 07/10/16 Atorvastatin (Atorvastatin) 10 Mg Tablet, 10 MG PO HS, #30 TAB Prov:KEILA DORSEY MD 07/10/16 Hydrocodone Bit-Acetaminophen (Hydrocodone Bit-APAP) 5-325MG Tablet, 1 TAB PO Q6H Y for PAIN for 1 Day, TAB Prov:KEILA DORSEY MD 07/10/16 Cephalexin* (Cephalexin*) 500 Mg Capsule, 500 MG PO Q8, #21 CAP Prov:KEILA DORSEY MD 07/10/16 Lisinopril* (Lisinopril*) 20 Mg Tablet, 40 MG PO BID, #60 TAB Prov:KEILA DORSEY MD 07/10/16 [Promethazine/Codeine Syp] 5 ML SYRUP No Conflict Check, 10 ML PO Q4H Y for COUGH for 10 Days Prov:KEILA DORSEY MD 07/10/16 Salmeterol Xinaf/Fluticasone* (Advair*) 250-50 Diskus Inhaler, 1 INH INH BID for 30 Days, #1 Prov:KEILA DORSEY MD 07/10/16 Metformin Hcl (Glucophage) 500 Mg Tablet, 500 MG PO BID, #60 TAB Prov:KEILA DORSEY MD 07/10/16 Levothyroxine Sodium* (Synthroid*) 150 Mcg Tablet, 150 MCG PO DAILY@06, #30 TAB Prov:KEILA DORSEY MD 07/10/16 Furosemide (Lasix) 20 Mg Tab, 20 MG PO BID DIURETICS, #60 TAB Prov:KEILA DORSEY MD 07/10/16 Aspirin* (Aspirin* EC) 81 Mg Tablet.dr, 81 MG PO DAILY, #30 1 Refill Prov:KEILA DORSEY MD 07/10/16 Amlodipine Besylate* (Amlodipine Besylate*) 10 Mg Tablet, 10 MG PO DAILY, #30 TAB 1 Refill Prov:KEILA DORSEY MD 07/10/16 Insulin Detemir (Levemir) 100 Unit/1 Ml Vial, 20 UNIT SC DAILY for 30 Days Prov:KEILA DORSEY MD 07/10/16 Discontinued Reported Medications [syntroid] No Conflict Check 07/06/16 Metformin* (Glucophage*) 1,000 Mg Tablet, 1000 MG PO DAILY, #30 TAB 07/06/16 Lisinopril* (Lisinopril*) 20 Mg Tablet, 20 MG PO DAILY, #30 TAB 07/06/16 Allergies Allergies: Coded Allergies: Sulfa (Sulfonamide Antibiotics) (Verified Allergy, Unknown, 07/14/16) iodine (Unverified Allergy, Unknown, 07/14/16) PMhx/Soc History of Surgery: Yes (HYSTERECTOMY) Anesthesia Reaction: No Hx Neurological Disorder: No Hx Respiratory Disorders: No Hx Cardiac Disorders: Yes (HTN, HDL) Hx Psychiatric Problems: No Hx Miscellaneous Medical Probl: Yes (DM) Hx Alcohol Use: No Hx Substance Use: No Hx Tobacco Use: No Smoking Status: Never smoker FmHx Family History: No diabetes Physical Exam Vitals Vital Signs Date Time Temp Pulse Resp B/P Pulse Ox O2 Delivery O2 Flow Rate FiO2 07/14/16 17:06 73 18 166/85 96 Room Air 07/14/16 16:15 2.0 07/14/16 16:15 85 20 97 Nasal Cannula 2.0 07/14/16 16:08 Nasal Cannula 2 07/14/16 13:13 97.9 83 20 192/88 94 Physical Exam General: Well developed, well nourished, no acute distress Head: Normocephalic, atraumatic. Eyes: Pupils equally reactive, EOM intact ENT: Moist mucous membranes Neck: Supple, no lymphadenopathy Respiratory: No respiratory distress, scant rhonchi at the bases bilaterally, good aeration Cardiovascular: RRR, no murmurs, rubs, or gallops Abdominal: Soft, non-tender, non-distended, no peritoneal signs : Deferred MSK: No edema, no unilateral swelling, 5/5 strength Neurologic: Alert and oriented, moving all extremities, normal speech, no focal weakness, no cerebellar signs Skin: No rash Psych: Normal mood Result Diagram: 07/14/16 1550 07/14/16 1550 Results 24 hrs Laboratory Tests Test 07/14/16 15:50 Anion Gap 14 B-Type Natriuretic Peptide 1460PG/ML Basophils # 0.010^3/ul Basophils % 0.5% Blood Urea Nitrogen 10mg/dl Calcium Level 9.2mg/dl Carbon Dioxide Level 31mmol/L Chloride Level 104mmol/L Creatinine 0.65mg/dl Eosinophils # 0.210^3/ul Eosinophils % 2.0% Glucose Level 164mg/dl Hematocrit 38.7% Hemoglobin 12.5g/dl Lymphocytes # 2.310^3/ul Lymphocytes % 30.4% Mean Corpuscular Hemoglobin 27.4pg Mean Corpuscular Hemoglobin Concent 32.3g/dl Mean Corpuscular Volume 84.9fl Mean Platelet Volume 9.2fl Monocytes # 0.610^3/ul Monocytes % 8.6% Neutrophils # 4.410^3/ul Neutrophils % 58.4% Nucleated Red Blood Cells # 0.010^3/ul Nucleated Red Blood Cells % 0.0/100WBC Platelet Count 77616^3/UL Potassium Level 3.7mmol/L Red Blood Count 4.5610^6/ul Red Cell Distribution Width 13.7% Sodium Level 145mmol/L Troponin I 0.014ng/ml White Blood Count 7.510^3/ul Current Medications Medications (Trade) Dose Ordered Sig/Alicja Route PRN Reason Start Time Stop Time Status Last Admin Dose Admin Albuterol (Proventil 0.083% (Neb)) 2.5 mg ONCE STAT NEB 07/14/16 15:37 07/14/16 15:39 DC 07/14/16 16:15 Ipratropium [place] (Atrovent 0.02% (Neb)) 0.5 mg ONCE STAT NEB 07/14/16 15:37 07/14/16 15:39 DC 07/14/16 16:15 Albuterol (Ventolin Hfa) 2 puff ONCE STAT INH 07/14/16 16:32 07/14/16 16:33 DC 07/14/16 16:44 Procedures/MDM EKG, MONITORS, & DIAGNOSTIC IMAGING: EKG: I reviewed and interpreted a 12-lead EKG. Rhythm: Normal sinus rhythm Ectopy: None Intervals: No abnormalities ST segments: No elevations or depressions T waves: No contiguous inversions Chest x-ray: IMPRESSION: 1. Right upper lobe residual consolidation with interval decreased bilateral interstitial edema or infiltrates when compared with 07/08/2016. 2. Mild cardiomegaly and atherosclerotic vascular disease LAB INTERPRETATION: No leukocytosis MEDICAL DECISION MAKING: The patient presents with shortness of breath with recent diagnosis of pneumonia. The patient has been able to take antibiotics appropriately but has not been able to use an inhaler at home because of inability to receive these medications from pharmacy delivery. The patient otherwise is well-appearing and afebrile here in the emergency room. She has no respiratory distress. She did have a troponin elevation during hospitalization but has no exertional symptoms. I do not believe this is consistent with acute coronary syndrome. No evidence of pulmonary embolism. I believe the patient would benefit from reevaluation including laboratory testing and chest x-ray imaging. She will benefit from breathing treatment. I believe her bounce back to the emergency room despite recent hospitalization is mostly because of inability to fill medications. I will provide the patient with an inhaler and right a prescription for albuterol solution. The patient is comfortable with this plan. If the patient has no evidence of worsening pneumonia, no evidence of cardiac injury she can be safely discharged. ER COURSE: The patient was given a breathing treatment with improved symptoms. X-ray is improved from baseline. I kept the patient and/or family informed of laboratory and diagnostic imaging results throughout the emergency room course. DISPOSITION PLAN: We discussed follow up with the patient's primary care doctor within 24 to 48 hours as needed. We also discussed return to the emergency room for worsening symptoms or worsening condition. Outpatient referral: None required Discharge Medications: Albuterol Departure Diagnosis: Primary Impression: Shortness of breath Condition: Stable GENARO MAIN MD Jul 14, 2016 16:36
[2016-07-14 16:41] LABS: TROPONIN-I 0.014 ng/ml (0.00-0.12)
[2016-07-14] MEDS ORDERED: ALBU2.5V3 NEB (16:54)
[2016-07-14] MEDS ORDERED: HYDR-3652 PO (16:59)
[2016-07-14 17:06] VITALS: BP 166/85; PULSE 73; RESP 18
== END 2016-07-14 17:07 | disposition home or self-care (01) ==
LOC: FTE 12:39 → E/R 17:07
DX: R06.02 Shortness of breath (principal); E11.9 Type 2 diabetes mellitus without complications; I10 Essential (primary) hypertension; Z79.84 Long term (current) use of oral hypoglycemic drugs; Z79.4 Long term (current) use of insulin; Z79.82 Long term (current) use of aspirin
CPT/HCPCS: 71010; 80048; 83880; 84484; 85025; 93005; 94664; Z7610

== ENCOUNTER 2016-09-15 13:00 | Emergency (ER) | payer SELFPAY ==
[~2016-09-15] VITALS: Wt 90.0 kg
[~2016-09-15 13:00] MED LIST changes: +ALBU2.5V3 NEB; +HYDR-3652 PO
== END 2016-09-15 16:31 | disposition left against medical advice (07) ==
LOC: E/R 13:00
DX: Z53.21 Procedure and treatment not carried out due to patient leaving prior to being seen by health care provider (principal)